=== PATIENT | female | born 1950 | race Caucasian/White ===

== ENCOUNTER → 2020-06-19 10:00 | Outpatient (BNV) | payer MEDICARE, SELFPAY | PROVIDERS: PCP Internal Medicine; Visit Provider Internal Medicine Medical Oncology | DX: Z85.3 Personal history of malignant neoplasm of breast (principal) | CPT/HCPCS: 99213; 99214 ==

== ENCOUNTER 2020-09-11 06:57 | Emergency (ER) | payer MEDICARE, SELFPAY ==
--- NOTE | ~2020-09-11 | CT_ITS ---
EXAMINATION: CT ABDOMEN AND PELVIS WITH CONTRAST CLINICAL INFORMATION: Abdominal pain, diarrhea. History colitis. Prior history breast cancer status post bilateral mastectomy. COMPARISON: None TECHNIQUE: Multidetector volumetric images were obtained from the superior aspect of the liver through the pubic symphysis following administration of 75 mL of Omnipaque 350 intravenous contrast. Sagittal and coronal reformatted images were obtained on the technologist's workstation. Oral contrast: No This CT examination was performed using dose optimization techniques as appropriate, variously including the following: *Automated exposure control *Adjustment of mA and/or kV according to patient size (this includes techniques or standardized protocols for targeted exams where dose is matched to indication/reason for exam; i.e. extremities or head) *Use of iterative reconstruction technique DLP: 327 mGy-cm FINDINGS: LUNG BASES: There are mild bilateral accentuated subpleural reticular markings at both bases. Incidental calcified granuloma present left posterior base under 5 mm, series 4 image 132. There is also probable linear mucous plugging subpleural left lateral base, coronal 49. No pleural thickening or effusion. LIVER, GALLBLADDER, AND BILIARY TREE: The liver is within normal size and smooth in contour and homogeneous in attenuation. There is no focal hepatic parenchymal lesion or intrahepatic ductal dilatation. The gallbladder is unremarkable with no evidence of radiopaque gallstones, gallbladder wall thickening, or obvious pericholecystic inflammatory changes. PANCREAS: Unremarkable. SPLEEN: Unremarkable. ADRENAL GLANDS: Right adrenal normal. There is a nodule medial limb left adrenal measuring 1.9 x 1.7 cm and 74 HU attenuation. KIDNEYS AND URETERS: The kidneys are normal in size and smooth in contour and enhance symmetrically. There are probable multiple parapelvic cysts left renal sinus. This limits assessment for collecting system distention. There is no left calculi or hydroureter or perinephric stranding. Right kidney has punctate cyst upper pole under 1 cm and a nonobstructing lower pole calculus 0.3 cm. BLADDER: Unremarkable. GASTROINTESTINAL TRACT: There are mild inflammatory changes of in the colon from cecum to rectum with mild circumferential wall thickening and reticulation of the serosal margins. There is also involvement distal and terminal ileum with mild wall thickening. There is no pneumatosis, free air, obstruction, or paracolic fluid collection. The appendix is unremarkable. No ascites. Small sliding hiatal hernia present. ABDOMINAL WALL: No significant hernia is appreciated. LYMPH NODES: No lymphadenopathy. VASCULAR: Unremarkable. PELVIC VISCERA: Unremarkable. OSSEOUS STRUCTURES: No acute bony abnormality. Degenerative changes lower lumbar spine facet L4-S1. SI joints unremarkable. No sacroiliitis. CT/CT abdomen pelvis w con IMPRESSION: 1. Mild diffuse colitis from cecum to rectum with involvement distal ileum. No pneumatosis or free air, ascites, or fluid collection. 2. Probable parapelvic cyst left renal sinus. No perinephric stranding. Nonobstructing right lower pole renal calculus 0.3 cm. 3. Left adrenal nodule 1.9 x 1.7 cm, 74 HU.
[2020-09-11 07:07] VITALS: BP 121/79; PULSE 94; RESP 18; TEMP 37; O2SAT 96; BMI 21.0
--- NOTE | 2020-09-11 07:08 | ED_ITS ---
HPI - Abdominal Pain General Chief Complaint: Abdominal Pain Stated Complaint: diarrhea, abd pain Time Seen by Provider: 09/11/20 07:08 Source: patient Mode of arrival: ambulatory Limitations: no limitations History of Present Illness HPI narrative: 70 yo female with breast cancer, HTN, HLD, colitis here with 4 days of intermittent cramping and diarrhea nonbloody - no antibiotics, no sick contacts MD elicited complaint: abdominal pain Pertinent past history: other (colitis) Onset (ago): day(s) Pain Consistency: intermittent and colicky Location: diffuse Severity: moderate Quality: cramping Radiation: none Migration to: no migration Exacerbating factors: bowel movement Relieving factors: nothing Context: history of similar episodes Associated symptoms: nausea and diarrhea Related Data Home Medications Medication Instructions Recorded Confirmed amlodipine 1 tab PO DAILY 06/19/20 06/19/20 atorvastatin 1 tab PO DAILY 06/19/20 06/19/20 biotin 5,000 mcg SUBLINGUAL DAILY 06/19/20 06/19/20 calcium 600 mg PO BID 06/19/20 06/19/20 cetirizine 1 tab PO DAILY 06/19/20 06/19/20 cholecalciferol (vitamin D3) 25 mcg PO DAILY 06/19/20 06/19/20 [Vitamin D3] zolpidem 0.5 tab PO BEDTIME PRN 06/19/20 06/19/20 Previous Rx's Medication Instructions Recorded levofloxacin 500 mg PO Q24H 7 Days #7 tab 09/11/20 metronidazole [Flagyl] 500 mg PO BID 7 Days #14 tab 09/11/20 Allergies Allergy/AdvReac Type Severity Reaction Status Date / Time WARM WATER SHELLFISH Allergy Intermediate RASH Uncoded 01/03/20 16:02 shellfish Allergy Unknown Hives Uncoded 06/19/20 10:35 Review of Systems Review of Systems Constitutional : No Weight loss, No Fever, No Chills ENT/Mouth : No sore throat, No Rhinorrhea Eyes: No Swelling, No Redness Cardiovascular : No Chest Pain, No SOB, NoEdema Respiratory : No Cough, No Sputum, No Wheezing Gastrointestinal : no Nausea, no Vomiting, positive Diarrhea, positive abdominal Pain, No Hematochezia, No Melena Genitourinary : No Dysuria, No Urinary Frequency, No Hematuria, No Urgency Musculoskeletal : No joint pain, No Myalgias, No Joint Swelling Skin : No Skin Lesions, No rash Neuro : No Weakness, No Numbness, No Dizziness, No Headache Psych : No Anxiety/Panic, No Depression Heme/Lymph: No Bruising, No Lymphadenopathy Endocrine : No Polyuria, No Polydipsia All other systems reviewed and are negative. Physical Exam Vital Signs: Vital Signs: Last Vital Signs Temp 98.6 F 09/11/20 09:33 Pulse 88 09/11/20 09:33 Resp 17 09/11/20 09:33 BP 118/72 09/11/20 09:33 Pulse Ox 97 09/11/20 09:33 Body Mass Index 21.0 Appearance: Alert. Oriented X3. No acute distress. Eyes: Pupils equal, round and reactive to light. ENT: Pharynx normal. Neck: Normal inspection. Neck supple. CVS: Normal heart rate and rhythm. Pulses normal. Respiratory: No respiratory distress. Breath sounds normal. Abdomen: Soft and non-tender. Skin: Skin warm and dry. Normal skin color. Normal skin turgor. Extremities: No lower extremity edema. No calf ttp Neuro: Oriented X 3. No motor deficit. No sensory deficit. Course Course Course Narrative: repleted K - wants to trial course of antibiotics at home, overall abd benign, tolerating PO, only 1 eipsode of diarrhea while here, given precautions to return MDM - Abdominal Pain MDM Narrative Medical decision making narrative: 70 yo female with breast cancer, HTN, HLD, colitis here with 4 days of intermittent cramping and diarrhea nonbloody - no antibiotics, no sick contacts at this time will need labs, IVF, CT scan for colitis/diverticulitis, stool studies if she produces, dispo per results and findings. Lab Data Result diagrams: 09/11/20 07:37 09/11/20 07:37 Labs: Lab Results 09/11/20 09/11/20 09/11/20 Range/Units 07:37 07:37 07:37 WBC 12.0 H (4.8-10.8) X10*3/uL RBC 4.65 (4.20-5.50) X10*6/uL Hgb 14.3 (12.0-16.0) g/dl Hct 42.1 (37-47) % MCV 90.5 (80-98) fL MCH 30.8 (27.0-33.0) pg MCHC 34.0 (31.0-35.0) g/dl RDW 13.6 (11.0-16.0) % Plt Count 338 (160-400) X10*3/uL MPV 9.8 (9.4-12.3) fL Immature Gran % (Auto) 0.3 (0.0-0.4) % Neut % (Auto) 78.2 H (45-73) % Lymph % (Auto) 13.1 L (20-40) % Routt % (Auto) 6.8 (2-11) % Eos % (Auto) 1.2 (0-4) % Baso % (Auto) 0.4 (0-2) % Lymph # (Auto) 1.6 (1.2-4.9) X10*3/uL Routt # (Auto) 0.8 (0.1-1.2) X10*3/uL Eos # (Auto) 0.1 (0.0-0.4) X10*3/uL Baso # (Auto) 0.1 (0.0-0.2) X10*3/uL Abs Immat Gran (auto) 0.04 H (0.00-0.03) X10*3/uL Absolute Neuts (auto) 9.4 H (2.0-8.3) X10*3/uL Absolute Nucleated RBC 0.000 (0.0-0.012) X10*3/uL Nucleated RBC % (auto) 0.0 (0.0-0.2) /100WBC Hold Blue Top SEE NOTE Sodium 142 (135-145) mmol/L Potassium 3.0 L D (3.3-5.1) mmol/L Chloride 106 (96-108) mmol/L Carbon Dioxide 25 (22-29) mmol/L Anion Gap 14 (12-20) BUN 12 (9-16) mg/dL Creatinine 0.69 (0.5-1.4) mg/dL Estim Creat Clear Calc 59.9 Estimated GFR > 60 Random Glucose 111 (60-115) mg/dL Lactic Acid (0.5-2.0) mmol/L Calcium 9.5 (8.4-10.2) mg/dL Magnesium 1.7 (1.6-2.6) mg/dL Total Bilirubin 0.6 (0.0-1.0) mg/dL Direct Bilirubin 0.2 (0.0-0.5) mg/dL AST 19 (5-31) U/L ALT 16 (0-31) U/L Alkaline Phosphatase 89 (39-117) U/L Total Protein 7.7 (6.5-8.0) g/dL Albumin 4.3 (3.5-5.0) g/dL Lipase 36 (8-78) U/L Stool Leukocytes, Qual (NEGATIVE) C. difficile Toxin A&B (Negative) C. difficile Antigen (Negative) C. difficile Interpret COVID-19 (JULIA) (Negative) COVID-19 Clin Com 09/11/20 09/11/20 09/11/20 Range/Units 07:37 07:37 07:39 WBC (4.8-10.8) X10*3/uL RBC (4.20-5.50) X10*6/uL Hgb (12.0-16.0) g/dl Hct (37-47) % MCV (80-98) fL MCH (27.0-33.0) pg MCHC (31.0-35.0) g/dl RDW (11.0-16.0) % Plt Count (160-400) X10*3/uL MPV (9.4-12.3) fL Immature Gran % (Auto) (0.0-0.4) % Neut % (Auto) (45-73) % Lymph % (Auto) (20-40) % Routt % (Auto) (2-11) % Eos % (Auto) (0-4) % Baso % (Auto) (0-2) % Lymph # (Auto) (1.2-4.9) X10*3/uL Routt # (Auto) (0.1-1.2) X10*3/uL Eos # (Auto) (0.0-0.4) X10*3/uL Baso # (Auto) (0.0-0.2) X10*3/uL Abs Immat Gran (auto) (0.00-0.03) X10*3/uL Absolute Neuts (auto) (2.0-8.3) X10*3/uL Absolute Nucleated RBC (0.0-0.012) X10*3/uL Nucleated RBC % (auto) (0.0-0.2) /100WBC Hold Blue Top Sodium (135-145) mmol/L Potassium (3.3-5.1) mmol/L Chloride (96-108) mmol/L Carbon Dioxide (22-29) mmol/L Anion Gap (12-20) BUN (9-16) mg/dL Creatinine (0.5-1.4) mg/dL Estim Creat Clear Calc Estimated GFR Random Glucose (60-115) mg/dL Lactic Acid 1.2 (0.5-2.0) mmol/L Calcium (8.4-10.2) mg/dL Magnesium (1.6-2.6) mg/dL Total Bilirubin (0.0-1.0) mg/dL Direct Bilirubin (0.0-0.5) mg/dL AST (5-31) U/L ALT (0-31) U/L Alkaline Phosphatase (39-117) U/L Total Protein (6.5-8.0) g/dL Albumin (3.5-5.0) g/dL Lipase (8-78) U/L Stool Leukocytes, Qual NEGATIVE (NEGATIVE) C. difficile Toxin A&B (Negative) C. difficile Antigen (Negative) C. difficile Interpret COVID-19 (JULIA) Negative (Negative) COVID-19 Clin Com See Note 09/11/20 Range/Units 07:39 WBC (4.8-10.8) X10*3/uL RBC (4.20-5.50) X10*6/uL Hgb (12.0-16.0) g/dl Hct (37-47) % MCV (80-98) fL MCH (27.0-33.0) pg MCHC (31.0-35.0) g/dl RDW (11.0-16.0) % Plt Count (160-400) X10*3/uL MPV (9.4-12.3) fL Immature Gran % (Auto) (0.0-0.4) % Neut % (Auto) (45-73) % Lymph % (Auto) (20-40) % Routt % (Auto) (2-11) % Eos % (Auto) (0-4) % Baso % (Auto) (0-2) % Lymph # (Auto) (1.2-4.9) X10*3/uL Routt # (Auto) (0.1-1.2) X10*3/uL Eos # (Auto) (0.0-0.4) X10*3/uL Baso # (Auto) (0.0-0.2) X10*3/uL Abs Immat Gran (auto) (0.00-0.03) X10*3/uL Absolute Neuts (auto) (2.0-8.3) X10*3/uL Absolute Nucleated RBC (0.0-0.012) X10*3/uL Nucleated RBC % (auto) (0.0-0.2) /100WBC Hold Blue Top Sodium (135-145) mmol/L Potassium (3.3-5.1) mmol/L Chloride (96-108) mmol/L Carbon Dioxide (22-29) mmol/L Anion Gap (12-20) BUN (9-16) mg/dL Creatinine (0.5-1.4) mg/dL Estim Creat Clear Calc Estimated GFR Random Glucose (60-115) mg/dL Lactic Acid (0.5-2.0) mmol/L Calcium (8.4-10.2) mg/dL Magnesium (1.6-2.6) mg/dL Total Bilirubin (0.0-1.0) mg/dL Direct Bilirubin (0.0-0.5) mg/dL AST (5-31) U/L ALT (0-31) U/L Alkaline Phosphatase (39-117) U/L Total Protein (6.5-8.0) g/dL Albumin (3.5-5.0) g/dL Lipase (8-78) U/L Stool Leukocytes, Qual (NEGATIVE) C. difficile Toxin A&B Negative (Negative) C. difficile Antigen Negative (Negative) C. difficile Interpret SEE NOTE COVID-19 (JULIA) (Negative) COVID-19 Clin Com Discharge Plan Discharge Clinical Impression: Hypokalemia, Colitis Patient Disposition: Home, Self-Care Instructions: Hypokalemia (ED), Colitis (ED) Additional Instructions: return to ED for any worsening symptoms or concerns if bloody stools, increased pain, fevers, vomiting occurs please return take antibiotics with meal avoid greasy, high fat foods, dairy other than yogurt for 1 week given 1st dose of flagyl, do not take levofloxacin today already given your dose Prescriptions: New metronidazole [Flagyl] 500 mg tablet 500 mg PO BID 7 Days Qty: 14 RF: 0 levofloxacin 500 mg tablet 500 mg PO Q24H 7 Days Qty: 7 RF: 0 No Action calcium 600 mg Capsule 600 mg PO BID RF: 0 atorvastatin 40 mg tablet 1 tab PO DAILY RF: 0 amlodipine 5 mg tablet 1 tab PO DAILY RF: 0 zolpidem 10 mg tablet 0.5 tab PO BEDTIME PRN (Reason: insomnia) RF: 0 cholecalciferol (vitamin D3) [Vitamin D3] 25 mcg (1,000 unit) Tablet 25 mcg PO DAILY RF: 0 biotin 5,000 mcg Tablet, Sublingual 5,000 mcg SUBLINGUAL DAILY RF: 0 cetirizine 10 mg tablet 1 tab PO DAILY RF: 0 Referrals: Wisam Giang MD [Primary Care Provider] - 1 week [facility] Past Medical History Attestation statement: The following information was validated with the patient. Medical History Arthritis Bilateral breast cancer HTN (hypertension) Hyperchloremia Osteopenia Vitamin D deficiency Surgical History History of bilateral mastectomy Family History Family History (Updated 06/19/20 @ 10:34 by Bea Ibarra RN) Paternal Uncle Colon cancer Mother Cardiac disease Father Cardiac disease Social History Social History Alcohol intake: current Alcohol intake frequency: 0-2 drinks per day Alcohol type: wine Patient Tobacco Use Status: Never used Tobacco Use of substances other than those prescribed or required for medical reasons: No Advance Directives: Yes Advance Directives Information Provided: Yes Advance Directives on File: No
[2020-09-11] MEDS: 0.9 % Sodium Chloride 1,000 ML 999 ML IVCONT (07:43)
[2020-09-11 07:50] LABS: MANUAL DIFF FLAG NO
[2020-09-11 07:53] LABS: Basophils Absolute Auto 0.1 X10*3/uL (0.0-0.2); Basophils Percent Auto 0.4 % (0-2); Eosinophils Absolute Auto 0.1 X10*3/uL (0.0-0.4); Eosinophils Percent Auto 1.2 % (0-4); Hematocrit 42.1 % (37-47); Hemoglobin 14.3 g/dl (12.0-16.0); Imm Gran Abs Auto 0.04 X10*3/uL (0.00-0.03); Imm Gran Pct Auto 0.3 % (0.0-0.4); Lymphocytes Absolute Auto 1.6 X10*3/uL (1.2-4.9); Lymphocytes Percent Auto 13.1 % (20-40); Mean Corpuscular Hemoglobin 30.8 pg (27.0-33.0); Mean Corpuscular Volume 90.5 fL (80-98); Mean Platelet Volume 9.8 fL (9.4-12.3); Monocytes Absolute Auto 0.8 X10*3/uL (0.1-1.2); Monocytes Percent Auto 6.8 % (2-11); Neutrophils Absolute Auto 9.4 X10*3/uL (2.0-8.3); Neutrophils Percent Auto 78.2 % (45-73); Platelet Count 338 X10*3/uL (160-400); Red Blood Count 4.65 X10*6/uL (4.20-5.50); Red Cell Distribution Width 13.6 % (11.0-16.0)
[2020-09-11 08:04] LABS: COVID-19 Test Negative (Negative); IDNOW Serial# 08D9AD1C
[2020-09-11 08:14] LABS: Lactic Acid 1.2 mmol/L (0.5-2.0)
[2020-09-11 08:22] LABS: Alanine Aminotransferase 16 U/L (0-31); Albumin Level 4.3 g/dL (3.5-5.0); Alkaline Phosphatase 89 U/L (39-117); Anion Gap 14 (12-20); Aspartate Amino Transferase 19 U/L (5-31); Bilirubin Direct 0.2 mg/dL (0.0-0.5); Bilirubin Total 0.6 mg/dL (0.0-1.0); Blood Urea Nitrogen 12 mg/dL (9-16); Calcium 9.5 mg/dL (8.4-10.2); Carbon Dioxide 25 mmol/L (22-29); Chloride 106 mmol/L (96-108); Creatinine Clr Calc Pharmacy 59.9; Estimated Glomerular Filt Rate > 60; Glucose Random 111 mg/dL (60-115); Lipase 36 U/L (8-78); Magnesium 1.7 mg/dL (1.6-2.6); Sodium 142 mmol/L (135-145); Total Protein 7.7 g/dL (6.5-8.0)
[2020-09-11 08:28] LABS: Leukocytes Stool Qualitative NEGATIVE (NEGATIVE)
[2020-09-11 08:51] LABS: CDIFF Ag Negative (Negative); CDIFF Internal ctrl Dots and bkg OK (V); CDiff Toxin Negative (Negative)
--- NOTE | 2020-09-11 08:56 | PC.NURSE ---
pt reports having two more diarrhea episodes, pt awaiting to go to ct
[2020-09-11] MEDS: iohexoL 350 MG/ML 100 ML INFUS..BTL IV (09:17)
[2020-09-11 09:33] VITALS: BP 118/72; PULSE 88; RESP 17; TEMP 37; O2SAT 97
[2020-09-11] MEDS: levoFLOXacin 500 MG TABLET PO (10:18)
[2020-09-11] MEDS: metroNIDAZOLE 500 MG TABLET PO (10:18)
[2020-09-11] MEDS: Potassium Chloride ER 20 MEQ TAB.ER.PRT 40 MEQ PO (10:18)
== END 2020-09-11 10:27 | disposition home or self-care (01) ==
PROVIDERS: Emergency Provider Emergency Medicine; PCP Internal Medicine
DX: K52.9 Noninfective gastroenteritis and colitis, unspecified (principal); R10.9 Unspecified abdominal pain; E87.6 Hypokalemia; I10 Essential (primary) hypertension; Z79.899 Other long term (current) drug therapy; Z20.822 Contact with and (suspected) exposure to COVID-19
CPT/HCPCS: 36415; 74177; 80048; 80076; 83605; 83690; 83735; 85025; 87040; 87205; 87324; 87449; 87635; 89055; 99284; Q9967

== ENCOUNTER 2020-11-11 16:23 | Emergency (ER) | payer MEDICARE, SELFPAY ==
--- NOTE | ~2020-11-11 | CT_ITS ---
EXAMINATION: CT ABDOMEN AND PELVIS WITHOUT CONTRAST CLINICAL INFORMATION: Right flank pain. Evaluate for renal colic. COMPARISON: CT abdomen/pelvis dated 09/11/2020. TECHNIQUE: Multidetector volumetric imaging was performed from the superior aspect of the liver through the pubic symphysis. Sagittal and coronal reformatted images were obtained on the technologist's workstation. This CT examination was performed using dose optimization techniques as appropriate, variously including the following: *Automated exposure control. *Adjustment of mA and/or kV according to patient size (this includes techniques or standardized protocols for targeted exams where dose is matched to indication/reason for exam; i.e. extremities or head). *Use of iterative reconstruction technique. DLP: 295 mGy-cm FINDINGS: LUNG BASES: The visualized lung bases are unremarkable. LIVER, GALLBLADDER, AND BILIARY TREE: The liver is normal in size, shape, and attenuation. No focal hepatic lesion or biliary ductal dilatation is present. The gallbladder is unremarkable with no evidence of radiopaque gallstones, gallbladder wall thickening, or obvious pericholecystic inflammatory changes. PANCREAS: Unremarkable. SPLEEN: Unremarkable. ADRENAL GLANDS: Redemonstration of a left adrenal nodule measuring 2.0 x 2.0 x 1.8 cm. This measures approximately 25 Hounsfield units on noncontrast imaging. Findings are consistent with a probable adenoma. One year follow up is recommended with adrenal washout CT. If stable for greater than one year, no further follow up imaging recommended. Unremarkable right adrenal gland. KIDNEYS AND URETERS: The kidneys are normal in size, shape, and attenuation. The previously seen right lower pole renal stone is now located within the distal right ureter and measures up to 0.3 cm. This is located just proximal to the right ureterovesicular junction. There is mild proximal hydroureteronephrosis with mild periureteral stranding. No left-sided renal or ureteral stone. No left-sided hydronephrosis or hydroureter. BLADDER: Nondistended and unremarkable. GASTROINTESTINAL TRACT: Small, sliding hiatal hernia. Sigmoid diverticulosis without evidence of acute diverticulitis. No bowel wall thickening or associated inflammatory change. No small or large bowel obstruction. PERITONEAL CAVITY: No intra-abdominal free air or free fluid. No intra-abdominal mass or organized fluid collection/abscess formation. ABDOMINAL WALL: No significant hernia is appreciated. LYMPH NODES: No significant lymphadenopathy. VASCULAR: Unremarkable. PELVIC VISCERA: The uterus and adnexa are unremarkable. OSSEOUS STRUCTURES: Unremarkable. CT/CT abdomen pelvis wo con IMPRESSION: 1. Distal right ureteral stone just proximal to the ureterovesicular junction measuring 0.4 cm. Mild proximal hydroureteronephrosis with periureteral stranding. 2. Redemonstration of a left adrenal nodule measuring up to 2 cm and 25 Hounsfield units. Findings likely represent a probable adenoma. One year follow up adrenal washout CT is recommended. If stable for greater than one year, no further follow up imaging is recommended. 3. Additional chronic findings are unchanged.
[2020-11-11 16:52] VITALS: BP 144/80; PULSE 73; RESP 22; TEMP 36.6; O2SAT 97; BMI 20.8
[2020-11-11] MEDS: Acetaminophen 325 MG TABLET 650 MG PO (17:19)
[2020-11-11] MEDS: Ondansetron ODT 4 MG TAB.RAPDIS TRANSLINGU (17:20)
[2020-11-11 17:36] LABS: MANUAL DIFF FLAG NO
[2020-11-11 17:44] LABS: Basophils Absolute Auto 0.1 X10*3/uL (0.0-0.2); Basophils Percent Auto 0.5 % (0-2); Eosinophils Absolute Auto 0.1 X10*3/uL (0.0-0.4); Hematocrit 41.4 % (37-47); Hemoglobin 13.9 g/dl (12.0-16.0); Imm Gran Abs Auto 0.03 X10*3/uL (0.00-0.03); Imm Gran Pct Auto 0.3 % (0.0-0.4); Lymphocytes Absolute Auto 1.4 X10*3/uL (1.2-4.9); Lymphocytes Percent Auto 12.6 % (20-40); Mean Corpuscular HGB Conc 33.6 g/dl (31.0-35.0); Mean Corpuscular Hemoglobin 30.8 pg (27.0-33.0); Mean Corpuscular Volume 91.8 fL (80-98); Mean Platelet Volume 10.4 fL (9.4-12.3); Monocytes Absolute Auto 0.6 X10*3/uL (0.1-1.2); Monocytes Percent Auto 5.2 % (2-11); Neutrophils Absolute Auto 8.6 X10*3/uL (2.0-8.3); Neutrophils Percent Auto 80.4 % (45-73); Platelet Count 286 X10*3/uL (160-400); Red Blood Count 4.51 X10*6/uL (4.20-5.50); Red Cell Distribution Width 13.7 % (11.0-16.0); White Blood Count 10.7 X10*3/uL (4.8-10.8)
[2020-11-11 18:01] LABS: Glucose Urine UA NEG (NEG); Leukocyte Esterase Urine NEG (NEG); Nitrite Urine NEG (NEG); Specific Gravity - Urine 1.025 (1.005-1.025); Urine Blood NEG (NEG); Urine Ketones 5 MG/DL (NEG); Urine Protein NEG (NEG-TRACE)
[2020-11-11 18:02] LABS: Lipase 48 U/L (8-78)
[2020-11-11 18:03] LABS: Alanine Aminotransferase 21 U/L (0-31); Albumin Level 4.4 g/dL (3.5-5.0); Alkaline Phosphatase 88 U/L (39-117); Anion Gap 14 (12-20); Aspartate Amino Transferase 25 U/L (5-31); Bilirubin Total 0.4 mg/dL (0.0-1.0); Blood Urea Nitrogen 24 mg/dL (9-16); Calcium 10.1 mg/dL (8.4-10.2); Carbon Dioxide 23 mmol/L (22-29); Chloride 111 mmol/L (96-108); Estimated Glomerular Filt Rate > 60; Glucose Random 127 mg/dL (60-115); Magnesium 1.8 mg/dL (1.6-2.6); Potassium 4.2 mmol/L (3.3-5.1); Sodium 144 mmol/L (135-145); Total Protein 7.9 g/dL (6.5-8.0)
[2020-11-11 18:09] LABS: Appearance Urine CLEAR; Color Urine YELLOW
--- NOTE | 2020-11-11 21:01 | ED.GENADULT ---
HPI - General Adult General Chief complaint: General Medical Stated complaint: ABD PAIN, KIDNEY STONES? Time Seen by Provider: 11/11/20 17:06 Source: patient Mode of arrival: ambulatory Limitations: no limitations History of Present Illness HPI narrative: 70-year-old female here with complaints of right flank pain nausea and feeling lightheaded for 2 episodes the 1st occurred at 02:30 today. On my exam she has no continued pain. No urinary symptoms, vomiting, fever Related Data Home Medications Medication Instructions Recorded Confirmed amlodipine 1 tab PO DAILY 06/19/20 06/19/20 atorvastatin 1 tab PO DAILY 06/19/20 06/19/20 biotin 5,000 mcg SUBLINGUAL DAILY 06/19/20 06/19/20 calcium 600 mg PO BID 06/19/20 06/19/20 cetirizine 1 tab PO DAILY 06/19/20 06/19/20 cholecalciferol (vitamin D3) 25 mcg PO DAILY 06/19/20 06/19/20 [Vitamin D3] zolpidem 0.5 tab PO BEDTIME PRN 06/19/20 06/19/20 Previous Rx's Medication Instructions Recorded tamsulosin [Flomax] 0.4 mg PO DAILY #10 cap 11/11/20 Allergies Allergy/AdvReac Type Severity Reaction Status Date / Time WARM WATER SHELLFISH Allergy Intermediate RASH Uncoded 11/11/20 16:52 Review of Systems Review of Systems: Yes all other systems are reviewed and are negative Constitutional: Constitutional: Reports no additional constitutional complaints, Denies body ache(s), Denies chills, Denies fever(s), Denies headache(s) and Denies weakness Eyes: Eyes: Reports no additional eye complaints and Denies change in vision ENT: Reports system reviewed and no additional complaints, except as documented, Denies dizziness, Denies headache(s), Denies nasal congestion, Denies nasal discharge and Denies neck pain Cardiovascular: Cardiovascular: Reports no additional cardiovascular complaints, Denies chest pain, Denies leg edema and Denies dyspnea Respiratory: Respiratory: Reports no additional respiratory complaints, Denies cough and Denies dyspnea Gastrointestinal: Gastrointestinal: Reports no additional gastrointestinal complaints, Denies abdominal pain, Denies diarrhea, Denies nausea and Denies vomiting Genitourinary: Genitourinary: Reports no additional female genitourinary complaints and Denies urinary incontinence Musculoskeletal: Musculoskeletal: Reports no additional musculoskeletal complaints, Reports back pain, Denies arthralgias, Denies joint swelling, Denies neck pain, Denies numbness and Denies tingling Integumentary/Breasts: Skin/Breast: Reports system reviewed and no additional complaints, except as docu and Denies rash Neurologic: Reports system reviewed and no additional complaints, except as documented, Denies Abnormal speech present, Denies dizziness, Denies headache(s), Denies numbness, Denies tingling and Denies weakness PMFSH Past Medical History Attestation statement: The following information was validated with the patient. Source: old records reviewed and nursing notes reviewed Medical History Arthritis Bilateral breast cancer HTN (hypertension) Hyperchloremia Osteopenia Vitamin D deficiency Surgical History History of bilateral mastectomy Family History Family History Paternal Uncle Colon cancer Mother Cardiac disease Father Cardiac disease Social History Social History Alcohol intake: current Alcohol intake frequency: 0-2 drinks per day Alcohol type: wine Patient Tobacco Use Status: Never used Tobacco Advance Directives: No Advance Directives Information Provided: No Physical Exam Vital Signs: Vital Signs: Last Vital Signs Temp 97.9 F 11/11/20 16:52 Pulse 73 11/11/20 16:52 Resp 22 H 11/11/20 16:52 BP 144/80 H 11/11/20 16:52 Pulse Ox 97 11/11/20 16:52 Body Mass Index 20.8 Const: General: cooperative, healthy appearing, comfortable and no acute distress Orientation/consciousness: patient oriented x3 Limitations: no limitations HENMT: Head: Yes normal to inspection Ears: hearing grossly normal bilaterally General nose exam: Normal external nose present Face and sinus: Yes normal facial exam Mouth: Normal oral and palatal mucosa present Throat: Yes posterior oropharynx normal Eyes: General: appearance normal, both eyes and all related structures Pupils: Equal, round and reactive pupils present Neck: Neck: Yes normal visual inspection Chest: Chest palpation & inspection: normal inspection of the chest Resp: Effort & Inspection: normal respiratory effort Auscultation: clear to auscultation bilaterally Cardio: Rate: regular rate Rhythm: regular rhythm Peripheral pulses: Peripheral pulses 2+ throughout GI: Inspection: Yes normal to inspection Palpation (GI): Soft to palpation and nontender Auscultation: normal bowel sounds : General: Yes no CVA tenderness Back/Spine/Pelvis: Back: no CVA tenderness Thoracic/Lumbar Spine: thoracic and lumbar spine normal to inspection Skin: General skin exam: no rashes or lesions noted Neuro: General: patient oriented x3, no focal motor deficits and normal sensation to monofilament Cranial nerves: Yes Equal, round and reactive pupils present Cognition (Neuro): normal cognition Speech: No Abnormal speech present Gait exam (Neuro): Normal gait present Motor exam (neuro): 5/5 motor strength present throughout Extrem: General: Yes normal to inspection Course Course Course Narrative: 70-year-old female here with intermittent episodes of flank pain since 02:30 with associated nausea and feeling lightheaded. Will check urine, labs, CT -IMPRESSION: 1. Distal right ureteral stone just proximal to the ureterovesicular junction measuring 0.4 cm. Mild proximal hydroureteronephrosis with periureteral stranding. 2. Redemonstration of a left adrenal nodule measuring up to 2 cm and 25 Hounsfield units. Findings likely represent a probable adenoma. One year follow up adrenal washout CT is recommended. If stable for greater than one year, no further follow up imaging is recommended. UA is negative for UTI. Normal labs. No pain since my examination. Tolerating PO. Given flomax for home. Recommend f/u outpatient with PCP. Reviewed worrisome signs and symptoms of when to return to the emergency department. Comfortable discharge home. Patient given copy of CT report. She is aware that she is to follow up with the adrenal nodule Medical Decision Making MDM Narrative Medical decision making narrative: Gallstone, renal colic Medical Records Medical records reviewed: Yes I reviewed the patient's medical records. Lab Data Lab results reviewed: Yes I reviewed the patient's lab results. Result diagrams: 11/11/20 17:31 11/11/20 17:31 Labs: Lab Results 11/11/20 11/11/20 11/11/20 Range/Units 17:31 17:31 17:31 WBC 10.7 (4.8-10.8) X10*3/uL RBC 4.51 (4.20-5.50) X10*6/uL Hgb 13.9 (12.0-16.0) g/dl Hct 41.4 (37-47) % MCV 91.8 (80-98) fL MCH 30.8 (27.0-33.0) pg MCHC 33.6 (31.0-35.0) g/dl RDW 13.7 (11.0-16.0) % Plt Count 286 (160-400) X10*3/uL MPV 10.4 (9.4-12.3) fL Immature Gran % (Auto) 0.3 (0.0-0.4) % Neut % (Auto) 80.4 H (45-73) % Lymph % (Auto) 12.6 L (20-40) % [place] % (Auto) 5.2 (2-11) % Eos % (Auto) 1.0 (0-4) % Baso % (Auto) 0.5 (0-2) % Lymph # (Auto) 1.4 (1.2-4.9) X10*3/uL [place] # (Auto) 0.6 (0.1-1.2) X10*3/uL Eos # (Auto) 0.1 (0.0-0.4) X10*3/uL Baso # (Auto) 0.1 (0.0-0.2) X10*3/uL Abs Immat Gran (auto) 0.03 (0.00-0.03) X10*3/uL Absolute Neuts (auto) 8.6 H (2.0-8.3) X10*3/uL Absolute Nucleated RBC 0.000 (0.0-0.012) X10*3/uL Nucleated RBC % (auto) 0.0 (0.0-0.2) /100WBC Hold Purple Top SEE NOTE Sodium 144 (135-145) mmol/L Potassium 4.2 D (3.3-5.1) mmol/L Chloride 111 H (96-108) mmol/L Carbon Dioxide 23 (22-29) mmol/L Anion Gap 14 (12-20) BUN 24 H D (9-16) mg/dL Creatinine 0.92 (0.5-1.4) mg/dL Estim Creat Clear Calc 45.0 Estimated GFR > 60 Random Glucose 127 H (60-115) mg/dL Calcium 10.1 D (8.4-10.2) mg/dL Magnesium 1.8 (1.6-2.6) mg/dL Total Bilirubin 0.4 (0.0-1.0) mg/dL AST 25 (5-31) U/L ALT 21 (0-31) U/L Alkaline Phosphatase 88 (39-117) U/L Total Protein 7.9 (6.5-8.0) g/dL Albumin 4.4 (3.5-5.0) g/dL Lipase (8-78) U/L Urine Color Urine Appearance Urine pH (5.0-8.0) Ur Specific [place] (1.005-1.025) Urine Protein (NEG-TRACE) MG/DL Urine Glucose (UA) (NEG) MG/DL Urine Ketones (NEG) MG/DL Urine Blood (NEG) Urine Nitrite (NEG) Ur Leukocyte Esterase (NEG) 11/11/20 11/11/20 Range/Units 17:31 17:31 WBC (4.8-10.8) X10*3/uL RBC (4.20-5.50) X10*6/uL Hgb (12.0-16.0) g/dl Hct (37-47) % MCV (80-98) fL MCH (27.0-33.0) pg MCHC (31.0-35.0) g/dl RDW (11.0-16.0) % Plt Count (160-400) X10*3/uL MPV (9.4-12.3) fL Immature Gran % (Auto) (0.0-0.4) % Neut % (Auto) (45-73) % Lymph % (Auto) (20-40) % [place] % (Auto) (2-11) % Eos % (Auto) (0-4) % Baso % (Auto) (0-2) % Lymph # (Auto) (1.2-4.9) X10*3/uL [place] # (Auto) (0.1-1.2) X10*3/uL Eos # (Auto) (0.0-0.4) X10*3/uL Baso # (Auto) (0.0-0.2) X10*3/uL Abs Immat Gran (auto) (0.00-0.03) X10*3/uL Absolute Neuts (auto) (2.0-8.3) X10*3/uL Absolute Nucleated RBC (0.0-0.012) X10*3/uL Nucleated RBC % (auto) (0.0-0.2) /100WBC Hold Purple Top Sodium (135-145) mmol/L Potassium (3.3-5.1) mmol/L Chloride (96-108) mmol/L Carbon Dioxide (22-29) mmol/L Anion Gap (12-20) BUN (9-16) mg/dL Creatinine (0.5-1.4) mg/dL Estim Creat Clear Calc Estimated GFR Random Glucose (60-115) mg/dL Calcium (8.4-10.2) mg/dL Magnesium (1.6-2.6) mg/dL Total Bilirubin (0.0-1.0) mg/dL AST (5-31) U/L ALT (0-31) U/L Alkaline Phosphatase (39-117) U/L Total Protein (6.5-8.0) g/dL Albumin (3.5-5.0) g/dL Lipase 48 (8-78) U/L Urine Color YELLOW Urine Appearance CLEAR Urine pH 6.0 (5.0-8.0) Ur Specific [place] 1.025 (1.005-1.025) Urine Protein NEG (NEG-TRACE) MG/DL Urine Glucose (UA) NEG (NEG) MG/DL Urine Ketones 5 (NEG) MG/DL Urine Blood NEG (NEG) Urine Nitrite NEG (NEG) Ur Leukocyte Esterase NEG (NEG) Imaging Data CT scan - abdomen: Attestation: I personally reviewed and interpreted this imaging study as follows: Radiologist's impression: IMPRESSION: 1. Distal right ureteral stone just proximal to the ureterovesicular junction measuring 0.4 cm. Mild proximal hydroureteronephrosis with periureteral stranding. 2. Redemonstration of a left adrenal nodule measuring up to 2 cm and 25 Hounsfield units. Findings likely represent a probable adenoma. One year follow up adrenal washout CT is recommended. If stable for greater than one year, no further follow up imaging is recommended. Discharge Plan Discharge Clinical Impression: Renal colic on right side, Adrenal adenoma Patient Disposition: Home, Self-Care Instructions: Renal Colic (ED) Additional Instructions: Your CT scan shows an adrenal adenoma. This was seen on your previous CT scan. You should follow-up with your PCP in regards to this Increase fluids Return for severe pain, fever 2 or more vomiting episodes. Prescriptions: New tamsulosin [Flomax] 0.4 mg capsule 0.4 mg PO DAILY Qty: 10 RF: 0 No Action calcium 600 mg Capsule 600 mg PO BID RF: 0 atorvastatin 40 mg tablet 1 tab PO DAILY RF: 0 amlodipine 5 mg tablet 1 tab PO DAILY RF: 0 zolpidem 10 mg tablet 0.5 tab PO BEDTIME PRN (Reason: insomnia) RF: 0 cholecalciferol (vitamin D3) [Vitamin D3] 25 mcg (1,000 unit) Tablet 25 mcg PO DAILY RF: 0 biotin 5,000 mcg Tablet, Sublingual 5,000 mcg SUBLINGUAL DAILY RF: 0 cetirizine 10 mg tablet 1 tab PO DAILY RF: 0 Referrals: Wisam Giang MD [Primary Care Provider] - 2 days
[2020-11-11] MEDS: Tamsulosin HCL 0.4 MG CAPSULE PO (22:29)
== END 2020-11-11 22:30 | disposition home or self-care (01) ==
PROVIDERS: Physician Assistant Medical; Emergency Provider Emergency Medicine; PCP Internal Medicine
DX: N13.2 Hydronephrosis with renal and ureteral calculous obstruction (principal); D35.02 Benign neoplasm of left adrenal gland; I10 Essential (primary) hypertension; Z85.3 Personal history of malignant neoplasm of breast
CPT/HCPCS: 36415; 74176; 80053; 81003; 83690; 83735; 85025; 99283; 99284

== ENCOUNTER 2021-01-30 13:29 | Emergency (ER) | payer MEDICARE, SELFPAY ==
--- NOTE | ~2021-01-30 | CT_ITS ---
EXAMINATION: CT ABDOMEN AND PELVIS WITHOUT CONTRAST CLINICAL INFORMATION: Right flank pain. Evaluate for a stone. COMPARISON: Recent CT abdomen/pelvis dated 11/11/2000. TECHNIQUE: Multidetector volumetric imaging was performed from the superior aspect of the liver through the pubic symphysis. Sagittal and coronal reformatted images were obtained on the technologist's workstation. This CT examination was performed using dose optimization techniques as appropriate, variously including the following: *Automated exposure control *Adjustment of mA and/or kV according to patient size (this includes techniques or standardized protocols for targeted exams where dose is matched to indication/reason for exam; i.e. extremities or head) *Use of iterative reconstruction technique DLP: 324 mGy-cm FINDINGS: LUNG BASES: The visualized lung bases are unremarkable. LIVER, GALLBLADDER, AND BILIARY TREE: The liver is normal in size, shape, and attenuation. No focal hepatic lesion or biliary ductal dilatation is present. The gallbladder is unremarkable with no evidence of radiopaque gallstones, gallbladder wall thickening, or obvious pericholecystic inflammatory changes. PANCREAS: Unremarkable SPLEEN: Unremarkable ADRENAL GLANDS: Redemonstration of a left adrenal nodule measuring up to 2.0 cm, not significantly changed when compared to the prior examination. Recommendation of adrenal washout CT one year from the initial examination on 09/11/2020 is unchanged. No new adrenal nodule. KIDNEYS AND URETERS: The kidneys are normal in size, shape, and attenuation. The previously seen distal right ureteral stone is now located at the right ureterovesicular junction measuring up to 0.4 cm in greatest dimension. There is mild right-sided hydroureteronephrosis, similar when compared to the prior examination. No new renal or ureteral stone. No left-sided hydroureteronephrosis. BLADDER: Otherwise unremarkable. GASTROINTESTINAL TRACT: Small, sliding hiatal hernia, unchanged. Sigmoid diverticulosis without evidence of acute diverticulitis. No small or large bowel obstruction. Appendix not seen. PERITONEAL CAVITY: No intra-abdominal free air or free fluid. No intra-abdominal mass or organized fluid collection/abscess formation. ABDOMINAL WALL: No significant hernia is appreciated. LYMPH NODES: No significant lymphadenopathy. VASCULAR: Unremarkable PELVIC VISCERA: The uterus and adnexa are unremarkable. OSSEOUS STRUCTURES: No concerning lytic or blastic osseous lesion. No acute osseous abnormality. CT/CT abdomen pelvis wo con IMPRESSION: 1. Previously seen distal right ureteral stone is now located at the right ureterovesicular junction again noted to measure approximately 0.4 cm. Mild right-sided hydroureteronephrosis is unchanged. 2. Additional chronic findings are unchanged.
[2021-01-30 14:01] VITALS: BP 151/75; PULSE 85; RESP 20; TEMP 36.8; O2SAT 98; BMI 21.0
[2021-01-30] MEDS: Ondansetron ODT 4 MG TAB.RAPDIS TRANSLINGU (14:06)
[2021-01-30 14:27] LABS: Appearance Urine CLEAR; Color Urine YELLOW; Glucose Urine UA NEG (NEG); Leukocyte Esterase Urine NEG (NEG); Nitrite Urine NEG (NEG); Specific Gravity - Urine >= 1.030 (1.005-1.025); UACC Culture Trigger NO; Urine Blood 2+ (NEG); Urine Ketones NEG (NEG); Urine Protein NEG (NEG-TRACE)
[2021-01-30 14:45] LABS: WBC Urine 0-2 /HPF (0-4)
[2021-01-30 14:46] LABS: MANUAL DIFF FLAG NO
[2021-01-30 14:47] LABS: Basophils Absolute Auto 0.1 X10*3/uL (0.0-0.2); Basophils Percent Auto 0.4 % (0-2); Eosinophils Absolute Auto 0.1 X10*3/uL (0.0-0.4); Hematocrit 42.2 % (37-47); Imm Gran Abs Auto 0.06 X10*3/uL (0.00-0.03); Imm Gran Pct Auto 0.5 % (0.0-0.4); Lymphocytes Absolute Auto 1.7 X10*3/uL (1.2-4.9); Lymphocytes Percent Auto 14.6 % (20-40); Mean Corpuscular HGB Conc 33.2 g/dl (31.0-35.0); Mean Corpuscular Hemoglobin 30.6 pg (27.0-33.0); Mean Corpuscular Volume 92.1 fL (80-98); Mean Platelet Volume 10.1 fL (9.4-12.3); Monocytes Absolute Auto 0.6 X10*3/uL (0.1-1.2); Monocytes Percent Auto 4.8 % (2-11); Neutrophils Absolute Auto 9.3 X10*3/uL (2.0-8.3); Neutrophils Percent Auto 78.7 % (45-73); Platelet Count 295 X10*3/uL (160-400); Red Blood Count 4.58 X10*6/uL (4.20-5.50); Red Cell Distribution Width 13.8 % (11.0-16.0); White Blood Count 11.8 X10*3/uL (4.8-10.8)
[2021-01-30 15:04] LABS: Alanine Aminotransferase 20 U/L (0-31); Albumin Level 4.3 g/dL (3.5-5.0); Alkaline Phosphatase 86 U/L (39-117); Anion Gap 15 (12-20); Aspartate Amino Transferase 24 U/L (5-31); Bilirubin Total 0.5 mg/dL (0.0-1.0); Blood Urea Nitrogen 24 mg/dL (9-16); Calcium 10.6 mg/dL (8.4-10.2); Carbon Dioxide 26 mmol/L (22-29); Chloride 107 mmol/L (96-108); Creatinine Clr Calc Pharmacy 45.5; Estimated Glomerular Filt Rate > 60; Glucose Random 134 mg/dL (60-115); Potassium 4.5 mmol/L (3.3-5.1); Sodium 143 mmol/L (135-145); Total Protein 7.8 g/dL (6.5-8.0)
[2021-01-30 16:17] LABS: Lipase 47 U/L (8-78); Magnesium 1.7 mg/dL (1.6-2.6)
[2021-01-30] MEDS: Ketorolac Tromethamine 15 MG/ML VIAL IVPUSH (16:18)
[2021-01-30] MEDS: 0.9 % Sodium Chloride 1,000 ML 999 ML IVCONT (16:18)
--- NOTE | 2021-01-30 17:55 | ED.ABDPAIN ---
HPI - Abdominal Pain General Chief Complaint: Abdominal Pain Stated Complaint: Flank Pain Time Seen by Provider: 01/30/21 15:56 Source: patient Mode of arrival: ambulatory History of Present Illness HPI narrative: 70-year-old female with past medical history of arthritis, HTN, HLD, renal stones, vitamin-D deficiency, presenting to the ED complaining of right flank pain radiating to abdomen since 1:00 p.m.. Admits to associated nausea and vomiting. Reports similar symptoms in the past with renal stone. Denies fever, chills, dysuria, hematuria, inability to urinate MD elicited complaint: flank pain Related Data Home Medications Medication Instructions Recorded Confirmed amlodipine 5 mg tablet 1 tab PO DAILY 06/19/20 06/19/20 atorvastatin 40 mg tablet 1 tab PO DAILY 06/19/20 06/19/20 biotin 5,000 mcg sublingual tablet 5,000 mcg SUBLINGUAL DAILY 06/19/20 06/19/20 calcium 600 mg capsule 600 mg PO BID 06/19/20 06/19/20 cetirizine 10 mg tablet 1 tab PO DAILY 06/19/20 06/19/20 cholecalciferol (vitamin D3) 25 25 mcg PO DAILY 06/19/20 06/19/20 mcg (1,000 unit) tablet (Vitamin D3) zolpidem 10 mg tablet 0.5 tab PO BEDTIME PRN 06/19/20 06/19/20 Previous Rx's Medication Instructions Recorded tamsulosin 0.4 mg capsule (Flomax) 0.4 mg PO DAILY #10 cap 11/11/20 hydrocodone 5 mg-acetaminophen 325 1 tab PO Q8H PRN 3 Days #9 tab 01/30/21 mg tablet ketorolac 10 mg tablet 10 mg PO TID PRN 5 Days #15 tab 01/30/21 ondansetron HCl 4 mg tablet 4 mg PO Q8H PRN #10 tab 01/30/21 (Zofran) tamsulosin 0.4 mg capsule (Flomax) 0.4 mg PO DAILY #14 cap 01/30/21 Allergies Allergy/AdvReac Type Severity Reaction Status Date / Time WARM WATER SHELLFISH Allergy Intermediate RASH Uncoded 11/11/20 16:52 Review of Systems Review of Systems Constitutional:No Fever, No Chills, No Fatigue, No Malaise ENT/Mouth: No Ear Pain, No Nasal Congestion, No sore throat Eyes: No Eye Pain, No Swelling, No Redness,No Discharge, No Vision Changes Cardiovascular: No Chest Pain, No SOB, No Palpitations Respiratory: No Cough, No Wheezing Gastrointestinal: + Nausea, + Vomiting, No Diarrhea, No Constipation, + Abdominal pain Genitourinary: No Dysuria, No Urinary Frequency, No Hematuria,+ Flank Pain Musculoskeletal: No joint pain, No Myalgias, No Joint Swelling Skin: No Skin Lesions, No rash Neuro: No Weakness, No Numbness, No Paresthesias Yes all other systems are reviewed and are negative Physical Exam Vital Signs: Vital Signs: Last Vital Signs Temp 98.2 F 01/30/21 14:01 Pulse 85 01/30/21 14:01 Resp 20 01/30/21 14:01 BP 151/75 H 01/30/21 14:01 Pulse Ox 98 01/30/21 14:01 Body Mass Index 21.0 Const: General: cooperative, healthy appearing and no acute distress Orientation/consciousness: patient oriented x3 Limitations: no limitations HENMT: Head: Yes normal to inspection Ears: hearing grossly normal bilaterally General nose exam: Normal external nose present Face and sinus: Yes normal facial exam Eyes: General: appearance normal, both eyes and all related structures EOM: EOMs intact bilaterally Neck: Neck: Yes normal visual inspection and Yes no meningeal signs Resp: Effort & Inspection: normal respiratory effort and no respiratory distress Cardio: Rate: regular rate GI: Inspection: Yes normal to inspection Palpation (GI): Soft to palpation, nontender, no guarding and not rigid : General: Yes CVA tenderness on the right Back/Spine/Pelvis: Back: CVA tenderness Skin: Rashes: no rashes Wounds: no wounds Neuro: General: patient oriented x3 and no meningeal signs Gait exam (Neuro): Normal gait present Extrem: General: Yes normal to inspection Course Course Course Narrative: -1800--mild leukocytosis of 11.8, labs otherwise unremarkable. On re-evaluation patient denies pain at this time -UA with RBCs, not infected CT abdomen pelvis wo con IMPRESSION: ? 1. Previously seen distal right ureteral stone is now located at the right ureterovesicular junction again noted to measure approximately 0.4 cm. Mild right-sided hydroureteronephrosis is unchanged. ? 2. Additional chronic findings are unchanged.? >> results discussed with patient. Given dose of Flomax in the ED. It has follow-up with Urology. Worrisome signs and symptoms and strict return precautions discussed MDM - Abdominal Pain MDM Narrative Medical decision making narrative: 70-year-old female with past medical history of arthritis, HTN, HLD, renal stones, vitamin-D deficiency, presenting to the ED complaining of right flank pain radiating to abdomen since 1:00 p.m. on exam VSS, NAD, abdomen soft/nontender, right CVAT noted on exam. Concern for renal stone vs pyelo. Lower concern for appendicitis/diverticulitis, cholecystitis/lithiasis or pancreatitis Plan: Labs, UA, CT AP, IVF, symptomatic treatment, reassess Medical Records Attestation: I reviewed the patient's medical records. Lab Data Attestation: I reviewed the patient's lab results. Result diagrams: 01/30/21 14:41 01/30/21 14:41 Labs: Lab Results 01/30/21 01/30/21 01/30/21 Range/Units 14:14 14:41 14:41 WBC 11.8 H (4.8-10.8) X10*3/uL RBC 4.58 (4.20-5.50) X10*6/uL Hgb 14.0 (12.0-16.0) g/dl Hct 42.2 (37-47) % MCV 92.1 (80-98) fL MCH 30.6 (27.0-33.0) pg MCHC 33.2 (31.0-35.0) g/dl RDW 13.8 (11.0-16.0) % Plt Count 295 (160-400) X10*3/uL MPV 10.1 (9.4-12.3) fL Immature Gran % (Auto) 0.5 H (0.0-0.4) % Neut % (Auto) 78.7 H (45-73) % Lymph % (Auto) 14.6 L (20-40) % [place] % (Auto) 4.8 (2-11) % Eos % (Auto) 1.0 (0-4) % Baso % (Auto) 0.4 (0-2) % Lymph # (Auto) 1.7 (1.2-4.9) X10*3/uL [place] # (Auto) 0.6 (0.1-1.2) X10*3/uL Eos # (Auto) 0.1 (0.0-0.4) X10*3/uL Baso # (Auto) 0.1 (0.0-0.2) X10*3/uL Abs Immat Gran (auto) 0.06 H (0.00-0.03) X10*3/uL Absolute Neuts (auto) 9.3 H (2.0-8.3) X10*3/uL Absolute Nucleated RBC 0.000 (0.0-0.012) X10*3/uL Nucleated RBC % (auto) 0.0 (0.0-0.2) /100WBC Sodium 143 (135-145) mmol/L Potassium 4.5 (3.3-5.1) mmol/L Chloride 107 (96-108) mmol/L Carbon Dioxide 26 (22-29) mmol/L Anion Gap 15 (12-20) BUN 24 H (9-16) mg/dL Creatinine 0.91 (0.5-1.4) mg/dL Estim Creat Clear Calc 45.5 Estimated GFR > 60 Random Glucose 134 H (60-115) mg/dL Calcium 10.6 H (8.4-10.2) mg/dL Magnesium 1.7 (1.6-2.6) mg/dL Total Bilirubin 0.5 (0.0-1.0) mg/dL AST 24 (5-31) U/L ALT 20 (0-31) U/L Alkaline Phosphatase 86 (39-117) U/L Total Protein 7.8 (6.5-8.0) g/dL Albumin 4.3 (3.5-5.0) g/dL Lipase 47 (8-78) U/L Urine Color YELLOW Urine Appearance CLEAR Urine pH 6.0 (5.0-8.0) Ur Specific [place] >= 1.030 H (1.005-1.025) Urine Protein NEG (NEG-TRACE) MG/DL Urine Glucose (UA) NEG (NEG) MG/DL Urine Ketones NEG (NEG) MG/DL Urine Blood 2+ H (NEG) Urine Nitrite NEG (NEG) Ur Leukocyte Esterase NEG (NEG) Urine RBC 5-9 H (0) /HPF Urine WBC 0-2 (0-4) /HPF Ur Squamous Epith Cells NONE /LPF Urine Bacteria NONE /LPF Discharge Plan Discharge Clinical Impression: Calculus of ureterovesical junction (UVJ) Patient Disposition: Home, Self-Care Instructions: Ureteral Stones (ED) Additional Instructions: You have a stone at the ureterovesicular junction of your right ureter, this may or may not pass on its own, really push fluids at home Flomax to help dilate her ureter Zofran as antinausea medication Toradol is an anti-inflammatory/pain medication [place] is an opiate pain medication, take only when pain is severe for the next 3 days Prescriptions: New ondansetron HCl [Zofran] 4 mg tablet 4 mg PO Q8H PRN (Reason: nausea and vomiting) Qty: 10 RF: 0 hydrocodone-acetaminophen 5-325 mg tablet 1 tab PO Q8H PRN (Reason: pain, severe) 3 Days Qty: 9 RF: 0 ketorolac 10 mg tablet 10 mg PO TID PRN (Reason: pain) 5 Days Qty: 15 RF: 0 tamsulosin [Flomax] 0.4 mg capsule 0.4 mg PO DAILY Qty: 14 RF: 0 No Action calcium 600 mg Capsule 600 mg PO BID RF: 0 atorvastatin 40 mg tablet 1 tab PO DAILY RF: 0 amlodipine 5 mg tablet 1 tab PO DAILY RF: 0 zolpidem 10 mg tablet 0.5 tab PO BEDTIME PRN (Reason: insomnia) RF: 0 cholecalciferol (vitamin D3) [Vitamin D3] 25 mcg (1,000 unit) Tablet 25 mcg PO DAILY RF: 0 biotin 5,000 mcg Tablet, Sublingual 5,000 mcg SUBLINGUAL DAILY RF: 0 cetirizine 10 mg tablet 1 tab PO DAILY RF: 0 tamsulosin [Flomax] 0.4 mg capsule 0.4 mg PO DAILY Qty: 10 RF: 0 Referrals: Francis Franco MD [Physician] - 5 days [facility] Past Medical History Attestation statement: The following information was validated with the patient. Medical History (Updated 01/30/21 @ 18:19 by RASHARD Muñoz) Arthritis Bilateral breast cancer HTN (hypertension) Hyperchloremia Kidney stones Osteopenia Vitamin D deficiency Surgical History History of bilateral mastectomy Family History Family History Paternal Uncle Colon cancer Mother Cardiac disease Father Cardiac disease Social History Social History Alcohol intake: current Alcohol intake frequency: a few times a week Alcohol type: wine Patient Tobacco Use Status: Never used Tobacco Use of substances other than those prescribed or required for medical reasons: No Advance Directives: No
[2021-01-30] MEDS: Tamsulosin HCL 0.4 MG CAPSULE PO (18:36)
== END 2021-01-30 19:06 | disposition home or self-care (01) ==
PROVIDERS: Physician Assistant; Emergency Provider Emergency Medicine; PCP Internal Medicine
DX: N20.1 Calculus of ureter (principal); R10.9 Unspecified abdominal pain; E55.9 Vitamin D deficiency, unspecified; Z79.899 Other long term (current) drug therapy
CPT/HCPCS: 36415; 74176; 80053; 81001; 83690; 83735; 85025; 96361; 96374; 99284; 99285; J1885

== ENCOUNTER → 2021-02-24 11:13 | Outpatient (BNVA) | payer MEDICARE, SELFPAY | PROVIDERS: PCP Internal Medicine | DX: N20.0 Calculus of kidney (principal) | CPT/HCPCS: 99202 ==

== ENCOUNTER 2021-06-29 11:14 | Outpatient (REF) | payer MEDICARE, SELFPAY ==
--- NOTE | ~2021-06-29 | US_ITS ---
EXAMINATION: US RETROPERITONEAL LIMITED (RENAL ONLY) CLINICAL INFORMATION: Calculus of kidney. Follow-up. COMPARISON: CT abdomen and pelvis without contrast 10/30/2020. TECHNIQUE: Transabdominal imaging of kidneys was performed. FINDINGS: RIGHT KIDNEY: 11.0 x 3.7 x 4.6 cm (SAG x AP x TRV). The kidney is normal in size, contour, and echogenicity. Renal cortical thickness is normal. There are dilated calyces. The upper pole calyx measures 2.1 x 1.5 x 1.8 cm with an echogenic stone in midpole calyx measuring 0.18 x 0.23 x 0.22 cm, question vascular calcification. There are several multiple echogenic foci. LEFT KIDNEY: 11.9 x 4.89 x 4.28 cm (SAG x AP x TRV). The kidney is normal in size, contour, and echogenicity. Renal cortical thickness is normal. No calculi or focal parenchymal lesions. No hydronephrosis. There are multiple echogenic foci visualized. US/US renal BI IMPRESSION: Bilateral multiple echogenic foci non-shadowing and non-twinkle. There is a mildly dilated upper pole calyceal system and a nonobstructive echogenic stone versus vascular calcification in the midpole measuring 0.2 cm. Multiple echogenic foci in left kidney as well but no hydronephrosis.
== END 2021-06-29 11:15 | disposition home or self-care (01) ==
LOC: HO.HMGCX 11:14
DX: N20.0 Calculus of kidney (principal)
CPT/HCPCS: 76775

== ENCOUNTER → 2021-08-07 09:55 | Outpatient (BNVA) | payer MEDICARE, SELFPAY | PROVIDERS: PCP Internal Medicine | DX: Z13.89 Encounter for screening for other disorder (principal) | CPT/HCPCS: Q3014 ==

== ENCOUNTER 2021-12-29 08:14 | Outpatient (REF) | payer MEDICARE, SELFPAY ==
--- NOTE | ~2021-12-29 | MM_ITS ---
EXAMINATION: BONE DENSITOMETRY CLINICAL INDICATION: Osteopenia. COMPARISON: Previous BD dated 10/31/2018 and baseline BD dated 08/18/2006. TECHNIQUE: Using a [employer] DXA System (software version: 13.1) manufactured by [employer], dual-energy x-ray absorptiometry was performed of the lumbar spine and left hip. The images are of good technical quality. Summary results are attached. FINDINGS: AP SPINE L1-L4: Current: BMD 1.081 g/cm2, Z-score 1.3, T-score -0.8, normal, 2.0% decrease from previous, 6.8% increase from baseline (<5% change is not significant). Prior: BMD 1.103 g/cm2. Baseline: BMD 1.012 g/cm2. LEFT FEMUR, NECK: Current: BMD 0.783 g/cm2, Z-score 0.2, T-score -1.8, osteopenia. Prior: BMD 0.773 g/cm2. Baseline: BMD 0.821 g/cm2. LEFT FEMUR, TOTAL: Current: BMD 0.774 g/cm2, Z-score 0.0, T-score -1.9, osteopenia, 0.6% decrease from previous, 7.9% decrease from baseline (<5% change is not significant). Prior: BMD 0.779 g/cm2. Baseline: BMD 0.840 g/cm2. IDENTIFIED RISK FACTORS: Menopause, osteoporosis, renal. HISTORY OF FRACTURE: None listed. MEDICATIONS: Calcium, vitamin D, bisphosphonates, Prolia. MM/XR DEXA axial skeleton IMPRESSION: 1. DIAGNOSIS: Osteopenia based on the lowest T-score value of -1.9 in the total femur applying World Health Organization criteria. 2. 10-YEAR FRACTURE RISK PREDICTION, FRAX: Major osteoporotic fracture (clinical spine, forearm, hip or shoulder) 10.4%. Hip fracture 2.1%. 3. Treatment Recommendations: NOF guidelines recommend consideration for treatment in postmenopausal women and men age 50 and older presenting with the following: -A hip or vertebral (clinical or morphometric) fracture. -T-score less than or equal to -2.5 at the femoral neck or spine after appropriate evaluation to exclude secondary causes. -Low bone mass at the hip or spine and a 10-year fracture probability by FRAX of greater than or equal to 3% for hip fracture or greater than or equal to 20% for major osteoporotic fracture based on the [place] adapted WHO algorithm. 4. Other Recommendations: All treatment decisions require clinical judgment and consideration of individual patient factors, including patient preferences, comorbidities, previous drug use, risk factors not captured in the FRAX model (e.g. frailty, falls, vitamin D deficiency, increased bone turnover, interval significant decline in bone density) and possible under or overestimation of fracture risk by FRAX. Additional medical evaluation for secondary cause of low bone mineral density may be appropriate. FUTURE SCAN RECOMMENDATION: People with diagnosed cases of osteoporosis or at high risk for fracture should have regular bone mineral density tests. For patients eligible for Medicare, routine testing is allowed once every 2 years. The testing frequency can be increased to one year for patients who have rapidly progressing disease, those who are receiving or discontinuing medical therapy to restore bone mass, or have additional risk factors.
== END 2021-12-29 08:15 | disposition home or self-care (01) ==
LOC: HO.MAMMO 08:14
PROVIDERS: PCP Internal Medicine; Visit Provider Internal Medicine Medical Oncology
DX: Z13.820 Encounter for screening for osteoporosis (principal); M85.88 Other specified disorders of bone density and structure, other site; Z78.0 Asymptomatic menopausal state
CPT/HCPCS: 77080

== ENCOUNTER 2022-01-18 12:44 | Outpatient (REF) | payer MEDICARE, SELFPAY ==
--- NOTE | ~2022-01-18 | US_ITS ---
EXAMINATION: US RETROPERITONEAL LIMITED (RENAL ONLY) CLINICAL INFORMATION: Calculus of kidney. COMPARISON: Ultrasound retroperitoneal limited (renal only) 06/29/2021. CT abdomen and pelvis without contrast 01/30/2021. TECHNIQUE: Real-time imaging of the kidneys. FINDINGS: RIGHT KIDNEY: 10.7 x 3.5 x 4.4 cm (SAG x AP x TRV). The kidney is normal in size, contour, and echogenicity. Renal cortical thickness is normal. No calculi or focal parenchymal lesions. No hydronephrosis. LEFT KIDNEY: 10.7 x 4.5 x 4.3 cm (SAG x AP x TRV). The kidney is normal in size, contour, and echogenicity. Renal cortical thickness is normal. No hydronephrosis. There are multiple punctate foci, likely tiny stones largest in the midpole measuring 0.2 x 0.2 x 0 0.2 cm. There are multiple peripelvic cyst or dilated calyces. The largest upper pole cyst versus dilated calyx measures 1.4 cm. US/US renal BI IMPRESSION: Multiple peripelvic renal cyst versus dilated calyces in left kidney. They measure 1.4 cm in maximum dimension. Multiple punctate small echogenic foci or tiny stones left kidney. There is no hydronephrosis. Unremarkable right kidney.
== END 2022-01-18 12:45 | disposition home or self-care (01) ==
LOC: HO.HMGCX 12:44
PROVIDERS: PCP Internal Medicine
DX: N20.0 Calculus of kidney (principal)
CPT/HCPCS: 76775

== ENCOUNTER → 2022-03-10 10:18 | Outpatient (BNVA) | payer MEDICARE, SELFPAY | PROVIDERS: PCP Internal Medicine; Visit Provider Urology | DX: N20.0 Calculus of kidney (principal) | CPT/HCPCS: 99212 ==

== ENCOUNTER → 2022-07-22 11:17 | Outpatient (BNVA) | payer MEDICARE, SELFPAY | PROVIDERS: PCP Internal Medicine; Visit Provider Urology | DX: N20.0 Calculus of kidney (principal) | CPT/HCPCS: Q3014 ==

== ENCOUNTER 2023-06-02 13:14 | Outpatient (AMB) | payer MEDICARE, SELFPAY ==
--- NOTE | 2023-06-02 13:52 | A.OFFVIS_ITS ---
Intake Intake Visit Reasons: low back pain Allergies WARM WATER SHELLFISH Allergy (Intermediate, Uncoded 07/22/22 11:18) RASH [facility] Medical History Arthritis Bilateral breast cancer HTN (hypertension) Hyperchloremia Kidney stones Osteopenia Vitamin D deficiency Surgical History History of bilateral mastectomy Family History Paternal Uncle Colon cancer Mother Cardiac disease Father Cardiac disease Social History Household Members: Spouse Housing: House Are you a primary emergency care tech to a significant other at home: No Do you presently have visiting nurse or other home services: No Alcohol intake: current Alcohol intake frequency: a few times a week Alcohol type: wine Patient Tobacco Use Status: Never used Tobacco service: No Current occupational status: retired Assessment & Plan Assessment & Plan (1) Back pain: Code(s): M54.9 - Dorsalgia, unspecified Plan Dear Dr. Giang Thank you for referring Mrs Lima to our office today. She has a 72-year-old female who presents for evaluation of back pain that she has had now for 2-3 months. She would generally start her morning feeling okay. As she gets out of bed and as the day goes on, she will experience a right-sided low back pain which can radiate at times down into her right buttock. Most of the time it will occur in the evening but occasionally it will occur earlier throughout the day. She did not take any medicine for it. One time she had something consistent with sciatica or radiculopathy but that is generally not a feature of what she is dealing with. The pain can be present at night, with standing or sitting. It does get worse with activity and walking but does not necessarily go away when she sits down. She had an MRI done showing degenerative issues in her back and she was sent to see us for an evaluation. PMH: She has a history of breast cancer and a double mastectomy, she has not had any issues with recurrence of cancer. History of cataract surgery, hypertension, high cholesterol Social hx: She has not smoke, drink alcohol Medications: Amlodipine, vitamin B, Ambien, atorvastatin, cetirizine, calcium, omeprazole Allergies: None Physical exam: Strength, reflexes and gait are all normal. Imaging review: She has a lumbar MRI done at [facility] in May of 2023. I also used CT scans going back to 2020 in the [employer] [facility] system for comparison. What I see is a patient who has increasing arthritis in the facet joints of L5- S1 with significant bony overgrowth. There has a slight spondylolisthesis at this level, grade 1. There is some mild degenerative disc disease and facet arthropathy at L4-5 but nothing compared to L5-S1. Impression: This is a very nice 72-year-old female who presents with 2-3 months of right-sided low back pain which will radiate down into her right buttock at times. It is present in all postural positions but is worse when she is sitting for any length of time or standing for any length of time. She does not have any radicular symptoms down into the leg or foot. No tingling or numbness. To this point she has not even tried [id number] medications yet. I discussed her MRI with her, the pertinent findings which I believe to be the L5-S1 facet arthropathy which is severe. It was present on the CT scan in 2020 but not quite as bad. I am not quite sure why it is acting up now. We talked about the fact that back pain can be elusive but that it typically will go away over time. I offered her the option physical therapy, she declined as she has not had good experience with this in the past. We talked about medications such as meloxicam, Celebrex or p.r.n. Aleve/Motrin. I told her I would defer to your office as to whether this was something she could take. I will refer her to Dr. Riley for facet blocks and possible RFA if she experiences a good result. I told her to come back and see me if these things do not give her any relief. Thank you for allowing us to care for your patient. The total time spent with this visit with this patient was 45 minutes reviewing history, physical exam, lumbar imaging review, and implementation of treatment plan or further diagnostic testing Mateo Pulido MD,PhD [facility] Orders: Referrals Physiatry Referral M54.9 - Dorsalgia, unspecified Coding Level of Care Code New Pt Level 4 (03050) Diagnoses Back pain M54.9
== END 2023-06-02 14:22 | disposition home or self-care (01) ==
PROVIDERS: PCP Internal Medicine; Visit Provider Physician Assistant
DX: M54.9 Dorsalgia, unspecified (principal)
CPT/HCPCS: 99204

== ENCOUNTER → 2023-06-02 13:14 | Outpatient (BNVA) | payer MEDICARE, SELFPAY | PROVIDERS: PCP Internal Medicine; Visit Provider Physician Assistant | DX: M54.9 Dorsalgia, unspecified (principal) | CPT/HCPCS: 99202 ==

== ENCOUNTER 2023-06-15 08:38 | Outpatient (AMB) | payer MEDICARE, SELFPAY ==
[2023-06-15 08:45] VITALS: BP 104/70; PULSE 62; RESP 12; O2SAT 98; BMI 21.3
--- NOTE | 2023-06-15 08:45 | MHC.OFFVIS ---
Intake Vital Signs 06/15/23 08:45 Height 5 ft 1 in Weight 113 lb BMI 21.3 BP 104/70 Blood Pressure Location Lt brachial Position Sitting Respiration 12 Pulse 62 Pulse Source Pulse Oximeter Pulse Oximetry (%) 98 Oxygen Delivery Method Room Air Intake Visit Reasons: Dorsalgia, unspecified Allergies WARM WATER SHELLFISH Allergy (Intermediate, Uncoded 06/15/23 08:47) RASH Medication List - Last Reconciled 06/15/23 by Pati Anne LPN amlodipine 1 tab PO DAILY atorvastatin 1 tab PO DAILY biotin 5,000 mcg sublingual DAILY calcium 600 mg PO BID cetirizine 1 tab PO DAILY cholecalciferol (vitamin D3) (Vitamin D3) 25 mcg PO DAILY omeprazole 1 cap PO DAILY pyridoxine (vitamin B6) 100 mg PO DAILY 90 days zolpidem 0.5 tabs PO BEDTIME PRN HPI Dorsalgia, unspecified HPI Details 72-year-old female who presents today for an evaluation of dorsalgia. She reports 2-3 months of right-sided low back pain, which will radiate down into her right buttock at times. Her pain score is usually between 2-8/10 in intensity and varies at various times. The pain is described as an ache in the axial low back, worse on the right side, that radiates to the right buttock. The pain is worse in all postural positions. Her pain aggravates when she is sitting or standing for any length of time. She denies any radicular symptoms down to her leg or foot. She denies having any paresthesia or numbness. She is unable to sleep normally. She has not tried [id number] medications yet. She had tried physical therapy in the past with no relief. She was diagnosed with osteopenia and has been taking Vit D supplements. She had bilateral mastectomy and is currently taking Prolia. 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 She has no children. Oswestry disability index score is 21 [facility] Medical History (Updated 06/16/23 @ 09:16 by Kaiden Riley MD) Kidney stones Hyperchloremia HTN (hypertension) Vitamin D deficiency Arthritis Bilateral breast cancer Osteopenia Surgical History History of bilateral mastectomy Family History Paternal Uncle Colon cancer Mother Cardiac disease Father Cardiac disease Social History Household Members: Spouse Housing: House Are you a primary acute care clinical nurse specialist to a significant other at home: No Do you presently have visiting nurse or other home services: No Alcohol intake: current Alcohol intake frequency: a few times a week Alcohol type: wine Patient Tobacco Use Status: Never used Tobacco service: No Current occupational status: retired Review of Systems Const All systems reviewed & are unremarkable except as noted in HPI and below Physical Exam Vital Signs: Last Vital Signs Pulse 62 06/15/23 08:45 Resp 12 06/15/23 08:45 BP 104/70 06/15/23 08:45 Pulse Ox 98 06/15/23 08:45 Oxygen Delivery Method Room Air 06/15/23 08:45 BMI result Body Mass Index 21.3 General: Appears afebrile. Alert and oriented. Mood and affect appropriate. Follows and participates in conversation appropriately. Respiratory effort is unlabored. Able to transition from sit to stand unassisted. Ambulates with bilaterally normal heel strike and toe off. SI joint compression and thrust reproduces symptoms mildly in the right lower back. Pawan does not reduce the symptoms in the right lower back. Forward flexion reproduces tugging sensations. Results Reviewed Results Reviewed: Review of MRI shows severe bilateral L5-S1 hypertrophy and spondylosis. Assessment & Plan Assessment & Plan (1) Lumbar spondylosis: Code(s): M47.816 - Spondylosis without myelopathy or radiculopathy, lumbar region (2) Osteopenia: Code(s): M85.80 - Other specified disorders of bone density and structure, unspecified site (3) Sacroiliac joint pain: Code(s): M53.3 - Sacrococcygeal disorders, not elsewhere classified Plan I discussed the diagnostic L5-S1 facet as well as the diagnostic SI joint injection with the patient today. Her pain differential includes lumbar facet arthritis and sacroiliac joint dysfunction. Given the facet arthritis on her lumbar MRI scan, we will schedule her for a diagnostic bilateral L5-S1 facet injection first. If these are nondiagnostic, we will consider a diagnostic right SI joint injection, and based on the findings of the diagnostic injections, we will schedule her for therapeutic injections. Discussed the risks and benefits of the procedure with the patient in detail. All questions were answered. The patient is on board with the plan. Justification for interventional therapy: Patient with average pain > 6/10. Patient has exhausted conservative therapy including physical therapy. Scribed for Dr. Riley by Linus Paniagua, medical claims processor, on 06/15/2023. I, Dr. Riley, have personally reviewed and agree with the information entered by the scribe. Coding Level of Care Code New Pt Level 4 (33803) Diagnoses Lumbar spondylosis M47.816 Osteopenia M85.80 Sacroiliac joint pain M53.3
== END 2023-06-15 09:24 | disposition home or self-care (01) ==
PROVIDERS: PCP Internal Medicine; Referring Provider Physician Assistant; Visit Provider Internal Medicine
DX: M47.816 Spondylosis without myelopathy or radiculopathy, lumbar region (principal); M85.80 Other specified disorders of bone density and structure, unspecified site; M53.3 Sacrococcygeal disorders, not elsewhere classified
CPT/HCPCS: 99204

== ENCOUNTER → 2023-06-15 08:38 | Outpatient (BNVA) | payer MEDICARE, SELFPAY | PROVIDERS: PCP Internal Medicine; Referring Provider Physician Assistant; Visit Provider Internal Medicine | DX: M47.816 Spondylosis without myelopathy or radiculopathy, lumbar region (principal); M85.80 Other specified disorders of bone density and structure, unspecified site; M53.3 Sacrococcygeal disorders, not elsewhere classified | CPT/HCPCS: 99202 ==

== ENCOUNTER 2023-06-16 07:41 | Outpatient (REF) | payer MEDICARE, SELFPAY ==
--- NOTE | ~2023-06-16 | CT_ITS ---
EXAMINATION: CT ABDOMEN AND PELVIS WITHOUT CONTRAST CLINICAL INFORMATION: Renal calculus. COMPARISON: Renal ultrasound dated 01/18/2022; CT the abdomen and pelvis dated 01/30/2021. TECHNIQUE: Multidetector volumetric imaging was performed from the superior aspect of the liver through the pubic symphysis. Sagittal and coronal reformatted images were obtained on the technologist's workstation. This CT examination was performed using dose optimization techniques as appropriate, variously including the following: *Automated exposure control *Adjustment of mA and/or kV according to patient size (this includes techniques or standardized protocols for targeted exams where dose is matched to indication/reason for exam; i.e. extremities or head) *Use of iterative reconstruction technique DLP: 2 mGy-cm FINDINGS: LUNG BASES: There is mild bibasilar linear scar/subsegmental atelectasis. LIVER, GALLBLADDER, AND BILIARY TREE: The liver is normal in size, shape, and attenuation. No focal hepatic lesion or biliary ductal dilatation is present. The gallbladder is unremarkable with no evidence of radiopaque gallstones, gallbladder wall thickening, or obvious pericholecystic inflammatory changes. PANCREAS: Unremarkable. SPLEEN: Unremarkable. ADRENAL GLANDS: The right adrenal gland is unremarkable. The left adrenal gland contains a 2.1 cm nodule with precontrast Hounsfield value of 26.2 units (4:103). This is stable in size from prior examinations including 09/11/2020. KIDNEYS AND URETERS: The kidneys are normal in size, shape, and attenuation. No hydronephrosis, hydroureter, or calculi seen. No perinephric stranding. At the lower pole of the left kidney (3:27), a 2.9 cm benign, simple cyst is seen, with precontrast Hounsfield value of 5.8 units. This requires no imaging follow-up. BLADDER: Decompressed and otherwise unremarkable. GASTROINTESTINAL TRACT: The small and large bowel are unremarkable. The appendix is unremarkable. ABDOMINAL WALL: No significant hernia is appreciated. LYMPH NODES: Normal. VASCULAR: There is mild aortoiliac atherosclerotic calcification. No abdominal aortic aneurysm is seen. PELVIC VISCERA: The uterus and adnexa are unremarkable. OSSEOUS STRUCTURES: At L2-L3, there is marked degenerative disc disease. There is multi-level thoracolumbar spondylosis and facet arthropathy. No acute or aggressive osseous finding is noted. CT/CT abdomen pelvis wo IV con IMPRESSION: 1. No urinary calculus or obstruction is seen. 2. A continued stable 2.1 cm left adrenal nodule is seen, with Hounsfield value of 26.2 units. This is a probably benign finding, for which no further imaging follow-up is recommended. 3. There are degenerative changes of the thoracolumbar spine. Degenerative disc disease most pronounced at L2-L3, where it is marked. Fleischner guidelines were followed.
== END 2023-06-16 07:42 | disposition home or self-care (01) ==
LOC: HO.CT 07:41
PROVIDERS: PCP Internal Medicine; Visit Provider Urology
DX: N20.0 Calculus of kidney (principal)
CPT/HCPCS: 74176

== ENCOUNTER 2023-06-30 06:14 | Outpatient (REF) | payer MEDICARE, SELFPAY ==
--- NOTE | ~2023-06-30 | FL_ITS ---
EXAMINATION: XR FLUOROSCOPY WITH IMAGES CLINICAL INFORMATION: Intraoperative fluoroscopy. COMPARISON: None available. TECHNIQUE: Fluoroscopy Supervised By: Dr. Caceres. Fluoroscopy Time: 0.2 minutes. Cumulative Dose: 1.35 mGy. DAP: 0.0109 mGym2. Images: 2. FINDINGS: The submitted image shows injection needles and injected contrast in the vicinity of the bilateral L4-L5 and L5-S1 neural foramina. FL/FL guidance in treatment room IMPRESSION: Intraoperative fluoroscopy is provided during lumbar pain management procedure. Please see the patient's Operative Report for full procedural details.
== END 2023-06-30 06:15 | disposition home or self-care (01) ==
LOC: CF 06:14
PROVIDERS: Visit Provider Internal Medicine
DX: M47.816 Spondylosis without myelopathy or radiculopathy, lumbar region (principal)
CPT/HCPCS: 64493; J2795; Q9967

== ENCOUNTER 2023-06-30 14:25 | Outpatient (AMB) | payer MEDICARE, SELFPAY ==
--- NOTE | 2023-06-30 14:24 | A.OFFVIS_ITS ---
Intake Vital Signs 06/30/23 14:25 06/30/23 14:55 Height 5 ft 1 in Weight 113 lb BMI 21.3 BP 140/70 H 126/70 Blood Pressure Location Lt brachial Lt brachial Position Sitting Sitting Respiration 16 18 Pulse 78 84 Pulse Source Pulse Oximeter Pulse Oximeter Pulse Oximetry (%) 99 97 Oxygen Delivery Method Room Air Room Air Comment Pre-Op Post-Op Intake Visit Reasons: Gian Dx L4 MBB Allergies WARM WATER SHELLFISH Allergy (Intermediate, Uncoded 06/28/23 09:31) RASH HPI Gian Dx L4 MBB HPI Details Patient presents for scheduled procedure. Denies any recent cough, cold, infection, fever or other significant changes in medical history since last office visit. [facility] Medical History Kidney stones Hyperchloremia HTN (hypertension) Vitamin D deficiency Arthritis Bilateral breast cancer Osteopenia Surgical History History of bilateral mastectomy Family History Paternal Uncle Colon cancer Mother Cardiac disease Father Cardiac disease Social History Household Members: Spouse Housing: House Are you a primary health care legal assistant to a significant other at home: No Do you presently have visiting nurse or other home services: No Alcohol intake: current Alcohol intake frequency: a few times a week Alcohol type: wine Patient Tobacco Use Status: Never used Tobacco service: No Current occupational status: retired Physical Exam Vital Signs: Last Vital Signs Pulse 84 06/30/23 14:55 Resp 18 06/30/23 14:55 BP 126/70 06/30/23 14:55 Pulse Ox 97 06/30/23 14:55 Oxygen Delivery Method Room Air 06/30/23 14:55 BMI result Body Mass Index 21.3 Office Procedures Lumbar/Sacral Facet Inj Details: Lumbar Medial Branch Block, Bilateral L4 medial branches and L5 Dorsal Rami After obtaining written consent, pre-procedure blood pressure and pulse were recorded and are in the nursing record for review. The patient was placed in a prone position. The respective lumbosacral area was prepped with chloraprep and draped in sterile fashion. The skin over the target medial branch nerves was anesthetized with 0.5% lidocaine. A 22 gauge 3.5 inch needle was inserted into the target medial branch nerve under fluoroscopic guidance. No paresthesias were elicited with needle placement and aspiration was negative for blood and CSF. Next, 0.2cc of omnipaque 180 was injected to verify positioning. Next 0.5 ml 0.5% ropivicaine was injected (0.5cc total per level). The identical procedure was performed at the remaining levels. The skin was cleansed and a sterile bandage was applied. Following the procedure the patient's vital signs were stable. The patient tolerated the procedure well and no complications were encountered. Following the procedure the patient's vital signs were stable. The patient was discharged home in good condition with post-procedural instructions. Time Out: Immediately prior to the procedure, the following was verbally confi rmed that there is a signed consent form and that the correct patient, planned procedure, site and side are consistent with documentation and that necessary equipment and/or blood products are available prior to the start of the case. Complications: none EBL: <5 cc 22197 - with Fluoroscopy (Bilateral) Procedure code (CPT) selection complete Assessment & Plan Assessment & Plan (1) Lumbar spondylosis: Code(s): M47.816 - Spondylosis without myelopathy or radiculopathy, lumbar region Plan Patient is status post bilateral diagnostic L4 medial branches and L5 dorsal rami blocks. Patient tolerated procedure well and was discharged home in stable condition with discharge instructions. All questions were answered. We will follow-up via telephone or in clinic to assess response to therapy. A follow-up appointment was made during today's visit. Orders: Orders FL guidance in treatment room Today M47.816 - Spondylosis without myelopathy or radiculopathy, lumbar region Coding Level of Care Code Procedure Only Diagnoses Lumbar spondylosis M47.816 CPT Codes Facet Injection-Lumbar/Sacral - CPT: 78929 - with Fluoroscopy ([id number])
[2023-06-30 14:25] VITALS: BP 140/70; PULSE 78; RESP 16; O2SAT 99; BMI 21.3
[2023-06-30 14:55] VITALS: BP 126/70; PULSE 84; RESP 18; O2SAT 97
== END 2023-06-30 14:55 | disposition home or self-care (01) ==
LOC: HO.PMCPRC 14:25
PROVIDERS: PCP Internal Medicine; Visit Provider Internal Medicine
DX: M47.816 Spondylosis without myelopathy or radiculopathy, lumbar region (principal)
CPT/HCPCS: 64493

== ENCOUNTER 2023-07-04 08:21 | Outpatient (AMB) | payer MEDICARE, SELFPAY ==
--- NOTE | 2023-07-04 08:39 | MHC.OFFVIS ---
Intake Vital Signs 07/04/23 08:41 Height 5 ft 1 in Weight 113 lb BMI 21.3 BP 126/73 Blood Pressure Location Lt brachial Position Sitting Pulse 80 Pulse Source Pulse Oximeter Pulse Oximetry (%) 99 Oxygen Delivery Method Room Air Intake Visit Reasons: s/p yang L4 Dx MBB Intake Note: Pain today 0/10 Swatch Checker Required: No Accompanied by: Spouse Allergies WARM WATER SHELLFISH Allergy (Intermediate, Uncoded 06/28/23 09:31) RASH HPI s/p yang L4 Dx MBB HPI Details 73-year-old female who presents today to the office for a status post bilateral L4 diagnostic MBB. The patient reports 85% relief following the procedure. She states that her severe pain has not flared up since the injection. She has mild achiness, which is manageable. She wakes up in the morning without any pain. As the day progressed, she had mild pain with movements, which resolved on its own in a few minutes. She is going on a two-week vacation to [place] starting on 07/07/2023. Past procedure: 06/30/23: Lumbar Medial Branch Block, Bilateral L4 medial branches and L5 Dorsal Rami: 85% relief for 2 days. [facility] Medical History Kidney stones Hyperchloremia HTN (hypertension) Vitamin D deficiency Arthritis Bilateral breast cancer Osteopenia Surgical History History of bilateral mastectomy Family History Paternal Uncle Colon cancer Mother Cardiac disease Father Cardiac disease Social History Household Members: Spouse Housing: House Are you a primary post acute care registered nurse to a significant other at home: No Do you presently have visiting nurse or other home services: No Alcohol intake: current Alcohol intake frequency: a few times a week Alcohol type: wine Patient Tobacco Use Status: Never used Tobacco service: No Current occupational status: retired Review of Systems Const All systems reviewed & are unremarkable except as noted in HPI and below Physical Exam Vital Signs: Last Vital Signs Pulse 80 07/04/23 08:41 BP 126/73 07/04/23 08:41 Pulse Ox 99 07/04/23 08:41 Oxygen Delivery Method Room Air 07/04/23 08:41 BMI result Body Mass Index 21.3 General: Appears afebrile. Alert and oriented. Mood and affect appropriate. Follows and participates in conversation appropriately. Respiratory effort is unlabored. Able to transition from sit to stand unassisted. Ambulates with bilaterally normal heel strike and toe off. Results Reviewed Results Reviewed: No imaging is available for review. Assessment & Plan Assessment & Plan (1) Lumbar spondylosis: Code(s): M47.816 - Spondylosis without myelopathy or radiculopathy, lumbar region Plan Discussed RFA vs. temporary nerve stimulator as a possible treatment option. The patient is amenable to proceeding with RFA first. We will schedule her for a repeat bilateral L4 medial branch, L5 dorsal ramis diagnostic nerve blocks in anticipation of lumbar medial branch radiofrequency ablation. Discussed the risks and benefits of the procedure with the patient in detail. All questions were answered. The patient is on board with the plan. Justification for interventional therapy: ? Patient with average pain > 6/10 ? Patient has exhausted conservative therapy ? Patient continuing home exercise program ? First diagnostic injection provided 85% relief . Patient has a good understanding of their pain condition and has appropriate mental and social support. Scribed for Dr. Riley by Linus Paniagua, medical collections representative, on 07/04/2023. I, Dr. Riley, have personally reviewed and agree with the information entered by the scribe. Coding Level of Care Code Est Pt Level 3 (95305) Diagnoses Lumbar spondylosis M47.816
[2023-07-04 08:41] VITALS: BP 126/73; PULSE 80; O2SAT 99; BMI 21.3
== END 2023-07-04 09:19 | disposition home or self-care (01) ==
PROVIDERS: PCP Internal Medicine; Visit Provider Internal Medicine
DX: M47.816 Spondylosis without myelopathy or radiculopathy, lumbar region (principal)
CPT/HCPCS: 99213

== ENCOUNTER → 2023-07-04 08:21 | Outpatient (BNVA) | payer MEDICARE, SELFPAY | PROVIDERS: PCP Internal Medicine; Visit Provider Internal Medicine | DX: M47.816 Spondylosis without myelopathy or radiculopathy, lumbar region (principal) | CPT/HCPCS: 99212 ==

== ENCOUNTER 2023-07-28 11:14 | Outpatient (AMB) | payer MEDICARE, SELFPAY ==
--- NOTE | 2023-07-28 11:20 | A.OFFVIS_ITS ---
Intake Visit Reasons: 6w/CT Intake Note: Patient presents today for a follow-up on CT Scan Results: Meds- Vitamin B6 Allergies to Antibiotic- No Known Allergies Blood Thinner- None Special Needs Tutor Required: No Accompanied by: Significant Other Allergies WARM WATER SHELLFISH Allergy (Intermediate, Uncoded 08/29/23 09:11) RASH HPI Comments Details: 07/28/23--Narcsia is a 73-year-old female who is here for follow up kidney stones. She denies flank pain. denies irritative voiding symptoms. I have reviewed 06/16/23-CT Abd/pelvis wo IV contrast, no renal calcifications reported. Pt instructed on diet modification, Vit B6 100 mg. Will cont to monitor kidneys. Review of chart: 03/02/2022--Narcisa is a 71-year-old female who is here for follow-up. The patient is followed for kidney stones. I have reviewed the Follow-up renal ultrasound, 01/18/2022, left kidney small stones. The patient is asymptomatic. She takes vitamin B6 daily. She admits that she is not drinking a lot of water. Urinalysis today no signs of infection. Discussed plan for 24 hour urine check after the holidays. Follow-up telehealth discuss results. 07/22/2022-- Telehealth visit Drinks 16 ounce of water 4-5 times a day and ice tea with meals. The patient followed the procedure while undergoing 24-hour urine test. The pt Denies urinary leakage while giving 24-hour urine test. Discussed 24 hour urine results: Total volume 810 mL, Calcium 20 mg; Oxalate 14mg, Sodium 75 , Citrate: less than 12 mg. I Discussed that urine volume collected appears low based on the volume of fluid intake she reports. Renal US results reviewed--01/18/2022-- Left kidney: There are multiple punctate foci, likely tiny stones largest in the midpole measuring 0.2 x 0.2 x 0 0.2 cm. There are multiple peripelvic cyst or dilated calyces. The largest upper pole cyst versus dilated calyx measures 1.4 cm. [facility] Medical History (Updated 08/31/23 @ 20:21 by Shaina Cooper MD) Kidney stones Hyperchloremia HTN (hypertension) Vitamin D deficiency Arthritis Bilateral breast cancer Osteopenia Surgical History History of bilateral mastectomy Family History Paternal Uncle Colon cancer Mother Cardiac disease Father Cardiac disease Social History Household Members: Spouse Housing: House Are you a primary day care center director to a significant other at home: No Do you presently have visiting nurse or other home services: No Alcohol intake: current Alcohol intake frequency: a few times a week Alcohol type: wine Patient Tobacco Use Status: Never used Tobacco service: No Current occupational status: retired Review of Systems Const All systems reviewed & are unremarkable except as noted in HPI and below Reports no additional complaints Eyes Reports no additional complaints ENT Reports no additional complaints Card Reports no additional complaints Resp Reports no additional complaints GI Reports no additional complaints Reports as per HPI Musc Reports no additional complaints Skin/Breast Reports system reviewed and no additional complaints, except as documented Neuro Reports no additional complaints Psych Reports no additional complaints Endo Reports no additional complaints Tay/Lymph Reports no additional complaints Aller/Immun Reports no additional complaints Results Reviewed Results Reviewed: Date of Service: 06/16/23 EXAMINATION: CT ABDOMEN AND PELVIS WITHOUT CONTRAST CLINICAL INFORMATION: Renal calculus. COMPARISON: Renal ultrasound dated 01/18/2022; CT the abdomen and pelvis dated 01/30/2021. TECHNIQUE: Multidetector volumetric imaging was performed from the superior aspect of the liver through the pubic symphysis. Sagittal and coronal reformatted images were obtained on the technologist's workstation. This CT examination was performed using dose optimization techniques as appropriate, variously including the following: *Automated exposure control *Adjustment of mA and/or kV according to patient size (this includes techniques or standardized protocols for targeted exams where dose is matched to indication/reason for exam; i.e. extremities or head) *Use of iterative reconstruction technique DLP: 2 mGy-cm FINDINGS: LUNG BASES: There is mild bibasilar linear scar/subsegmental atelectasis. LIVER, GALLBLADDER, AND BILIARY TREE: The liver is normal in size, shape, and attenuation. No focal hepatic lesion or biliary ductal dilatation is present. The gallbladder is unremarkable with no evidence of radiopaque gallstones, gallbladder wall thickening, or obvious pericholecystic inflammatory changes. PANCREAS: Unremarkable. SPLEEN: Unremarkable. ADRENAL GLANDS: The right adrenal gland is unremarkable. The left adrenal gland contains a 2.1 cm nodule with precontrast Hounsfield value of 26.2 units (4:103). This is stable in size from prior examinations including 09/11/2020. KIDNEYS AND URETERS: The kidneys are normal in size, shape, and attenuation. No hydronephrosis, hydroureter, or calculi seen. No perinephric stranding. At the lower pole of the left kidney (3:27), a 2.9 cm benign, simple cyst is seen, with precontrast Hounsfield value of 5.8 units. This requires no imaging follow-up. BLADDER: Decompressed and otherwise unremarkable. GASTROINTESTINAL TRACT: The small and large bowel are unremarkable. The appendix is unremarkable. ABDOMINAL WALL: No significant hernia is appreciated. LYMPH NODES: Normal. VASCULAR: There is mild aortoiliac atherosclerotic calcification. No abdominal aortic aneurysm is seen. PELVIC VISCERA: The uterus and adnexa are unremarkable. OSSEOUS STRUCTURES: At L2-L3, there is marked degenerative disc disease. There is multi-level thoracolumbar spondylosis and facet arthropathy. No acute or aggressive osseous finding is noted. IMPRESSION: 1. No urinary calculus or obstruction is seen. 2. A continued stable 2.1 cm left adrenal nodule is seen, with Hounsfield value of 26.2 units. This is a probably benign finding, for which no further imaging follow-up is recommended. 3. There are degenerative changes of the thoracolumbar spine. Degenerative disc disease most pronounced at L2-L3, where it is marked. Date of Service: 01/18/22 EXAMINATION: US RETROPERITONEAL LIMITED (RENAL ONLY) CLINICAL INFORMATION: Calculus of kidney. COMPARISON: Ultrasound retroperitoneal limited (renal only) 06/29/2021. CT abdomen and pelvis without contrast 01/30/2021. TECHNIQUE: Real-time imaging of the kidneys. FINDINGS: RIGHT KIDNEY: 10.7 x 3.5 x 4.4 cm (SAG x AP x TRV). The kidney is normal in size, contour, and echogenicity. Renal cortical thickness is normal. No calculi or focal parenchymal lesions. No hydronephrosis. LEFT KIDNEY: 10.7 x 4.5 x 4.3 cm (SAG x AP x TRV). The kidney is normal in size, contour, and echogenicity. Renal cortical thickness is normal. No hydronephrosis. There are multiple punctate foci, likely tiny stones largest in the midpole measuring 0.2 x 0.2 x 0 0.2 cm. There are multiple peripelvic cyst or dilated calyces. The largest upper pole cyst versus dilated calyx measures 1.4 cm. IMPRESSION: Multiple peripelvic renal cyst versus dilated calyces in left kidney. They measure 1.4 cm in maximum dimension. Multiple punctate small echogenic foci or tiny stones left kidney. There is no hydronephrosis. Unremarkable right kidney. Assessment & Plan Assessment & Plan (1) Renal cyst: Code(s): N28.1 - Cyst of kidney, acquired Category: Medical (2) Kidney stones: Code(s): N20.0 - Calculus of kidney Category: Medical Plan Monitor kidneys. Diet modification to decrease kidney stone recurrence. Vit B6 100 mg daily Advised the patient to consume adequate amount of water. Advised to consume low sodium diet. Advised Low oxalate diet---green leafy vegetable, nuts, and tea in moderation as they are rich in oxalate. FU one year, CT stone protocol Orders: Orders AMB Urinalysis Automated 07/28/23 Z13.9 - Encounter for screening, unspecified Patient Instructions: The patient had an opportunity to ask questions regarding treatment plan. The patient expressed understanding and agreement with the above treatment plan. The patient is aware they should contact our office by phone for worsening of their current condition or the appearance of new symptoms. Compliance is encouraged with any medications and followup testing that is ordered. It is a privilege to be allowed the opportunity to participate in the urologic care of your patient. If you have any questions or concerns regarding treatment for the above conditions please do not hesitate to contact me. The office telephone contact is [phone]. This note is constructed in part using voice recognition software. While every effort has been made to ensure accuracy senior environmental engineer errors may have been inc luded. Yours sincerely, Shaina Cooper MD Coding Level of Care Code Est Pt Level 3 (67515) Diagnoses Renal cyst N28.1 Kidney stones N20.0
== END 2023-07-28 12:18 | disposition home or self-care (01) ==
PROVIDERS: PCP Internal Medicine; Visit Provider Urology
DX: N28.1 Cyst of kidney, acquired (principal); N20.0 Calculus of kidney
CPT/HCPCS: 99213

== ENCOUNTER → 2023-07-28 11:14 | Outpatient (BNVA) | payer MEDICARE, SELFPAY | PROVIDERS: PCP Internal Medicine; Visit Provider Urology | DX: N28.1 Cyst of kidney, acquired (principal); N20.0 Calculus of kidney | CPT/HCPCS: 99212 ==

== ENCOUNTER 2023-08-29 09:05 | Outpatient (AMB) | payer MEDICARE, SELFPAY ==
[2023-08-29 09:10] VITALS: BP 103/78; PULSE 89; RESP 14; O2SAT 98; BMI 21.3
--- NOTE | 2023-08-29 09:10 | A.OFFVIS_ITS ---
Vital Signs 08/29/23 09:10 Height 5 ft 1 in Weight 113 lb BMI 21.3 BP 103/78 Blood Pressure Location Lt brachial Position Sitting Respiration 14 Pulse 89 Pulse Source Pulse Oximeter Pulse Oximetry (%) 98 Oxygen Delivery Method Room Air Intake Visit Reasons: Partial Affirmation Discussion Allergies WARM WATER SHELLFISH Allergy (Intermediate, Uncoded 08/29/23 09:11) RASH Medication List - Last Reconciled 08/29/23 by Pati Anne LPN amlodipine 1 tab PO DAILY atorvastatin 1 tab PO DAILY biotin 5,000 mcg sublingual DAILY calcium 600 mg PO BID cetirizine 1 tab PO DAILY cholecalciferol (vitamin D3) (Vitamin D3) 25 mcg PO DAILY omeprazole 1 cap PO DAILY pyridoxine (vitamin B6) 100 mg PO DAILY 90 days zolpidem 0.5 tabs PO BEDTIME PRN HPI HPI Partial Affirmation Discussion: Details: 73-year-old female who presents today to the office for a discussion regarding denial of the 2nd round of diagnostic facet blocks after a successful for strong. The patient had 85% relief from the 1st diagnostic lumbar medial branch block procedure for an appropriate duration for the local anesthetic typical duration. The pain then returned and is is localized to her lower back, axial in across the lower back region. She rates her pain at at least 6/10 in intensity and has been present for many years. She received two separate letters from the insurance company for denial of the procedure. She reports worsening of the lower back pain while waiting for her treatments. Her Oswestry disability index has previously done in the office was 42%. Past procedure: 06/30/23: Lumbar Medial Branch Block, Bilateral L4 Medial Branch, and L5 Dorsal Rami: 85% relief for 2 days. [facility] Medical History (Updated 08/31/23 @ 20:21 by Shaina Cooper MD) Kidney stones Hyperchloremia HTN (hypertension) Vitamin D deficiency Arthritis Bilateral breast cancer Osteopenia Surgical History History of bilateral mastectomy Family History Paternal Uncle Colon cancer Mother Cardiac disease Father Cardiac disease Social History Household Members: Spouse Housing: House Are you a primary hemodialysis patient care specialist to a significant other at home: No Do you presently have visiting nurse or other home services: No Alcohol intake: current Alcohol intake frequency: a few times a week Alcohol type: wine Patient Tobacco Use Status: Never used Tobacco service: No Current occupational status: retired Review of Systems Const All systems reviewed & are unremarkable except as noted in HPI and below Physical Exam Vital Signs: Last Vital Signs Pulse 89 08/29/23 09:10 Resp 14 08/29/23 09:10 BP 103/78 08/29/23 09:10 Pulse Ox 98 08/29/23 09:10 Oxygen Delivery Method Room Air 08/29/23 09:10 BMI result Body Mass Index 21.3 General: Appears afebrile. Alert and oriented. Mood and affect appropriate. Follows and participates in conversation appropriately. Respiratory effort is unlabored. Able to transition from sit to stand unassisted. Ambulates with bilaterally normal heel strike and toe off. Lumbar facet extension reproduces pain. Lumbar facet loading is positive on both sides, left more than right. Results Reviewed Results Reviewed: No imaging is available for review. Assessment & Plan Assessment & Plan (1) Lumbar spondylosis: Code(s): M47.816 - Spondylosis without myelopathy or radiculopathy, lumbar region Category: Medical Plan Discussed RFA vs. temporary nerve stimulator vs. PRP as possible treatment options. The patient is interested in proceeding with RFA of the lumbar medial branches first. Unfortunately her 2nd diagnostic injection has been deemed medically unnecessary despite her meeting the appropriate history, physical exam findings as well as response to the 1st round of diagnostic injection. We will resubmit prior authorization request for second round of bilateral L4 medial branch, L5 dorsal ramis diagnostic MBB in anticipation of lumbar medial branch radiofrequency ablation. Her Oswestry disability index has previously done in the office was 42%. If the request for further facet injections is denied, we will consider trial of medial branch nerve stimulation or PRP in jections for intractable low back pain. Scribed for Dr. Riley by Linus Paniagua, medical coding auditor, on 08/29/2023. I, Dr. Riley, have personally reviewed and agree with the information entered by the scribe. Coding Level of Care Code Est Pt Level 3 (90102) Diagnoses Lumbar spondylosis M47.816
== END 2023-08-29 10:05 | disposition home or self-care (01) ==
PROVIDERS: PCP Internal Medicine; Visit Provider Internal Medicine
DX: M47.816 Spondylosis without myelopathy or radiculopathy, lumbar region (principal)
CPT/HCPCS: 99213

== ENCOUNTER → 2023-08-29 09:05 | Outpatient (BNVA) | payer MEDICARE, SELFPAY | PROVIDERS: PCP Internal Medicine; Visit Provider Internal Medicine | DX: M47.816 Spondylosis without myelopathy or radiculopathy, lumbar region (principal) | CPT/HCPCS: 99212 ==

== ENCOUNTER 2023-09-22 06:14 | Outpatient (REF) | payer MEDICARE, SELFPAY ==
--- NOTE | ~2023-09-22 | FL_ITS ---
EXAMINATION: XR FLUOROSCOPY WITH IMAGES CLINICAL INFORMATION: Lumbar spine spondylosis. COMPARISON: None available. TECHNIQUE: Fluoroscopy Supervised By: Dr. Riley. Fluoroscopy Time: 0.1 min. Cumulative Dose: 1.01 mGy. DAP: 0.15166 Gycm2. Images: 4. FINDINGS: Intraoperative fluoroscopy and spot films were performed during a procedure in the OR. A series of needles are seen overlying the lumbosacral spine via transforaminal approach. Injected contrast is seen likely in the epidural space. The procedure was performed at 2 contiguous levels. Exact cysts level cannot be assessed secondary to marked coning of the images Please see Dr. Riley' report for complete details. FL/FL guidance in treatment room IMPRESSION: Intraoperative fluoroscopy and spot films were obtained. Please see Dr. Riley' report for complete details.
== END 2023-09-22 06:15 | disposition home or self-care (01) ==
LOC: CF 06:14
PROVIDERS: Visit Provider Internal Medicine
DX: M47.816 Spondylosis without myelopathy or radiculopathy, lumbar region (principal)
CPT/HCPCS: 64493; 64494; J2795; Q9967

== ENCOUNTER 2023-09-22 12:59 | Outpatient (AMB) | payer MEDICARE, SELFPAY ==
--- NOTE | 2023-09-22 13:12 | A.OFFVIS_ITS ---
Vital Signs 09/22/23 14:53 09/22/23 14:53 Height 5 ft 1 in Weight 113 lb BMI 21.3 BP 122/66 116/62 Blood Pressure Location Lt brachial Lt brachial Position Sitting Sitting Respiration 14 14 Pulse 86 74 Pulse Source Pulse Oximeter Pulse Oximeter Pulse Oximetry (%) 98 97 Oxygen Delivery Method Room Air Room Air Comment Pre-Op Post-Op Intake Visit Reasons: yang Dx L4-L5 MBB Allergies WARM WATER SHELLFISH Allergy (Intermediate, Uncoded 08/29/23 09:11) RASH HPI HPI yang Dx L4-L5 MBB: Details: Patient presents for scheduled procedure. Denies any recent cough, cold, infection, fever or other significant changes in medical history since last office visit. [facility] Medical History (Updated 08/31/23 @ 20:21 by Shaina Cooper MD) Kidney stones Hyperchloremia HTN (hypertension) Vitamin D deficiency Arthritis Bilateral breast cancer Osteopenia Surgical History History of bilateral mastectomy Family History Paternal Uncle Colon cancer Mother Cardiac disease Father Cardiac disease Social History Household Members: Spouse Housing: House Are you a primary director of health care marketing to a significant other at home: No Do you presently have visiting nurse or other home services: No Alcohol intake: current Alcohol intake frequency: a few times a week Alcohol type: wine Patient Tobacco Use Status: Never used Tobacco service: No Current occupational status: retired Office Procedures Lumbar/Sacral Facet Inj Details: Lumbar Medial Branch Block, Bilateral L4 medial branches and L5 Dorsal Rami After obtaining written consent, pre-procedure blood pressure and pulse were recorded and are in the nursing record for review. The patient was placed in a prone position. The respective lumbosacral area was prepped with chloraprep and draped in sterile fashion. The skin over the target medial branch nerves was anesthetized with 0.5% lidocaine. A 22 gauge 3.5 inch needle was inserted into the target medial branch nerve under fluoroscopic guidance. No paresthesias were elicited with needle placement and aspiration was negative for blood and CSF. Next, 0.2cc of omnipaque 180 was injected to verify positioning. Next 0.5 ml 0.5% ropivicaine was injected (0.5cc total per level). The identical procedure was performed at the remaining levels. The skin was cleansed and a sterile bandage was applied. Following the procedure the patient's vital signs were stable. The patient tolerated the procedure well and no complications were encountered. Following the procedure the patient's vital signs were stable. The patient was discharged home in good condition with post-procedural instructions. Time Out: Immediately prior to the procedure, the following was verbally confirmed that there is a signed consent form and that the correct patient, planned procedure, site and side are consistent with documentation and that necessary equipment and/or blood products are available prior to the start of the case. Complications: none EBL: <5 cc 68093 - with Fluoroscopy (bilateral) 94602 - second level, with Fluoroscopy (bilateral) Procedure code (CPT) selection complete Assessment & Plan Assessment & Plan (1) Lumbar spondylosis: Code(s): M47.816 - Spondylosis without myelopathy or radiculopathy, lumbar region Category: Medical Plan Patient is status post bilateral L4 medial branch and L5 dorsal ramus diagnostic blocks. Patient tolerated procedure well and was discharged home in stable condition with discharge instructions. All questions were answered. We will follow-up via telephone or in clinic to assess response to therapy. A follow-up appointment was made during today's visit. Orders: Orders FL guidance in treatment room Today M47.816 - Spondylosis without myelopathy or radiculopathy, lumbar region Coding Level of Care Code Procedure Only Diagnoses Lumbar spondylosis M47.816 CPT Codes Facet Injection-Lumbar/Sacral - CPT: 43996 - with Fluoroscopy ([id number]) Facet Injection-Lumbar/Sacral - CPT: 66041 - second level, with Fluoroscopy ([id number])
[2023-09-22 14:53] VITALS: BP 116/62; BP 122/66; PULSE 74; PULSE 86; RESP 14; O2SAT 97; O2SAT 98; BMI 21.3
== END 2023-09-22 13:50 | disposition home or self-care (01) ==
LOC: HO.PMCPRC 12:59
PROVIDERS: PCP Internal Medicine; Visit Provider Internal Medicine
DX: M47.816 Spondylosis without myelopathy or radiculopathy, lumbar region (principal)
CPT/HCPCS: 64493; 64494

== ENCOUNTER 2023-09-26 09:33 | Outpatient (AMB) | payer MEDICARE, SELFPAY ==
--- NOTE | 2023-09-26 09:39 | MHC.OFFVIS ---
Vital Signs 09/26/23 09:41 Height 5 ft 1 in Weight 113 lb BMI 21.3 BP 128/78 Blood Pressure Location Rt brachial Position Sitting Respiration 14 Pulse 75 Pulse Source Pulse Oximeter Pulse Oximetry (%) 98 Oxygen Delivery Method Room Air Intake Visit Reasons: s/p yang Dx L4-L5 MBB Allergies WARM WATER SHELLFISH Allergy (Intermediate, Uncoded 09/26/23 09:42) RASH Medication List - Last Reconciled 09/26/23 by Pati Anne LPN amlodipine 1 tab PO DAILY atorvastatin 1 tab PO DAILY biotin 5,000 mcg sublingual DAILY calcium 600 mg PO BID cetirizine 1 tab PO DAILY cholecalciferol (vitamin D3) (Vitamin D3) 25 mcg PO DAILY omeprazole 1 cap PO DAILY pyridoxine (vitamin B6) 100 mg PO DAILY 90 days zolpidem 0.5 tabs PO BEDTIME PRN HPI HPI s/p yang Dx L4-L5 MBB: Details: 73-year-old female presenting for follow-up after 2 diagnostic lower lumbar medial branch blocks. The patient reports more than 80% relief with each of her diagnostic injections. She actually has continued ongoing relief on the right side from the last injection. She is interested in proceeding with radiofrequency ablation of her lumbar medial branch nerves for longer term relief of her symptoms. Her pain is worse on the left side at this time. We will start with the left side and proceed with the right side 2 weeks later. [facility] Medical History (Updated 08/31/23 @ 20:21 by Shaina Cooper MD) Kidney stones Hyperchloremia HTN (hypertension) Vitamin D deficiency Arthritis Bilateral breast cancer Osteopenia Surgical History History of bilateral mastectomy Family History Paternal Uncle Colon cancer Mother Cardiac disease Father Cardiac disease Social History Household Members: Spouse Housing: House Are you a primary career professional to a significant other at home: No Do you presently have visiting nurse or other home services: No Alcohol intake: current Alcohol intake frequency: a few times a week Alcohol type: wine Patient Tobacco Use Status: Never used Tobacco service: No Current occupational status: retired Review of Systems Const All systems reviewed & are unremarkable except as noted in HPI and below Physical Exam Vital Signs: Last Vital Signs Pulse 75 09/26/23 09:41 Resp 14 09/26/23 09:41 BP 128/78 09/26/23 09:41 Pulse Ox 98 09/26/23 09:41 Oxygen Delivery Method Room Air 09/26/23 09:41 BMI result Body Mass Index 21.3 On exam today: Appears afebrile. Alert and oriented. Mood and affect appropriate. Follows and participates in conversation appropriately. Respiratory effort is unlabored. Able to transition from sit to stand unassisted. Ambulates with bilaterally normal heel strike and toe off. Able to stand and walk on toes and heels. Assessment & Plan Assessment & Plan (1) Lumbar spondylosis: Code(s): M47.816 - Spondylosis without myelopathy or radiculopathy, lumbar region Category: Medical Plan 73-year-old female with lumbar spondylosis and positive response to 2 rounds of diagnostic lumbar medial branch blocks with more than 80% response for the duration of the anesthetic phase. Patient is interested in moving forward with radiofrequency ablation of the lumbar medial branches starting with the left side followed by the right side two weeks later. Coding Level of Care Code Est Pt Level 3 (77890) Diagnoses Lumbar spondylosis M47.816
[2023-09-26 09:41] VITALS: BP 128/78; PULSE 75; RESP 14; O2SAT 98; BMI 21.3
== END 2023-09-26 10:03 | disposition home or self-care (01) ==
LOC: HO.PMC 09:33
PROVIDERS: PCP Internal Medicine; Visit Provider Internal Medicine
DX: M47.816 Spondylosis without myelopathy or radiculopathy, lumbar region (principal)
CPT/HCPCS: 99213

== ENCOUNTER → 2023-09-26 09:33 | Outpatient (BNVA) | payer MEDICARE, SELFPAY | PROVIDERS: PCP Internal Medicine; Visit Provider Internal Medicine | DX: M47.816 Spondylosis without myelopathy or radiculopathy, lumbar region (principal) | CPT/HCPCS: 99212 ==

== ENCOUNTER 2023-10-27 06:21 | Outpatient (REF) | payer MEDICARE, SELFPAY ==
--- NOTE | ~2023-10-27 | FL_ITS ---
EXAMINATION: XR FLUOROSCOPY WITH IMAGES CLINICAL INFORMATION: Spondylosis without myelopathy. COMPARISON: None available. TECHNIQUE: Fluoroscopy Supervised By: Dr. Kaiden Riley. Fluoroscopy Time: 0.4 minutes. Cumulative Dose: 4.41 mGy. DAP: 0.0386 mGym2. Images: 3. FINDINGS: Intraoperative fluoroscopy and spot films were performed during a procedure in the OR. Probes are present at likely L4, L5 and S1 on the left. Please correlate with Dr. Riley' report for complete details. FL/FL guidance in treatment room IMPRESSION: Intraoperative fluoroscopy and spot films were obtained. Please see Dr. Riley' report for complete details.
== END 2023-10-27 06:22 | disposition home or self-care (01) ==
LOC: CF 06:21
PROVIDERS: Visit Provider Internal Medicine
DX: M47.816 Spondylosis without myelopathy or radiculopathy, lumbar region (principal)
CPT/HCPCS: 64635; 64636

== ENCOUNTER 2023-10-27 10:52 | Outpatient (AMB) | payer MEDICARE, SELFPAY ==
[2023-10-27 11:32] VITALS: BP 118/67; PULSE 82; O2SAT 97
--- NOTE | 2023-10-27 11:32 | MHC.OFFVIS ---
Vital Signs 10/27/23 11:32 10/27/23 12:27 BP 118/67 103/67 Blood Pressure Location Lt brachial Lt brachial Position Sitting Sitting Pulse 82 61 Pulse Source Pulse Oximeter Pulse Oximeter Pulse Oximetry (%) 97 99 Oxygen Delivery Method Room Air Room Air Comment pre-op post-op Intake Visit Reasons: Left L4-L5 MB RFA Allergies WARM WATER SHELLFISH Allergy (Intermediate, Uncoded 09/26/23 09:42) RASH HPI HPI Left L4-L5 MB RFA: Details: Patient presents for scheduled procedure. Denies any recent cough, cold, infection, fever or other significant changes in medical history since last office visit. [facility] Medical History (Updated 08/31/23 @ 20:21 by Shaina Cooper MD) Kidney stones Hyperchloremia HTN (hypertension) Vitamin D deficiency Arthritis Bilateral breast cancer Osteopenia Surgical History History of bilateral mastectomy Family History Paternal Uncle Colon cancer Mother Cardiac disease Father Cardiac disease Social History Household Members: Spouse Housing: House Are you a primary school child care attendant to a significant other at home: No Do you presently have visiting nurse or other home services: No Alcohol intake: current Alcohol intake frequency: a few times a week Alcohol type: wine Patient Tobacco Use Status: Never used Tobacco service: No Current occupational status: retired Physical Exam Vital Signs: Last Vital Signs Pulse 61 10/27/23 12:27 BP 103/67 10/27/23 12:27 Pulse Ox 99 10/27/23 12:27 Oxygen Delivery Method Room Air 10/27/23 12:27 Office Procedures Details: Radiofrequency lesioning medial branch nerves, LEFT L3, L4 medial branches and L5 dorsal ramus (L4/5 and L5/S1) (2 levels, 3 nerves) After obtaining written consent, pre-procedure blood pressure and heart rate were stable and recorded in the nursing record. The patient was placed in the prone position. The lumbar area was prepped with chloraprep and draped in sterile fashion. The skin over the target for each medial branch nerve was anesthetized with 0.5% lidocaine. An 18 gauge radiofrequency cannula was advanced to each target site under fluoroscopic guidance. No paresthesias were elicited with needle placement and aspiration was negative for heme and CSF. Impedences were verified under 600 ohms. Sensory testing (50 Hz) and then motor testing (2 Hz) confirmed needle placement at each site within the appropriate voltage thresholds. Each site was injected with 0.5 ml 2% preservative-free lidocaine. Radiofrequency lesioning was performed for 90 seconds at 80 deg Celcius. Each site was then injected with 0.5ml 2% lidocaine. The needle was removed, skin cleansed and a sterile bandage was applied. The patient tolerated the procedure well and no complications were encountered. Following the procedure the patient's vital signs were stable. The patient was discharged home in good condition with post-procedural instructions. Time Out: Immediately prior to the procedure, the following was verbally confirmed that there is a signed consent form and that the correct patient, planned procedure, site and side are consistent with documentation and that necessary equipment and/or blood products are available prior to the start of the case. Complications: none EBL: <5 cc 93424 - RFA Lumbar Medial Branches 58236 - Lumbar Medial Branches ADDNL Procedure code (CPT) selection complete Office Meds lidocaine (PF) 50 mg/5 mL (1 %) injection syringe Performing Provider: Maria Elena Mckinnon APRN, CNP Performing Location: [facility] [place] [facility] Administered by: Kaiden Riley MD on 10/27/23 14:33 Dose Route Admin Location Dispensed Lot Number Expiration Date [facility] Picture Enlarger 5 mL Infiltration 5 mL ropivacaine (PF) 5 mg/mL (0.5 %) injection solution Performing Provider: Maria Elena Mckinnon APRN, CNP Performing Location: [facility] [place] [facility] Administered by: Kaiden Riley MD on 10/27/23 14:33 Dose Route Admin Location Dispensed Lot Number Expiration Date [facility] Picture Enlarger 5 mg subcut 1 mL Assessment & Plan Assessment & Plan (1) Lumbar spondylosis: Code(s): M47.816 - Spondylosis without myelopathy or radiculopathy, lumbar region Category: Medical Plan Patient is status post left L3, L4 medial branch and L5 dorsal ramus radiofrequency ablation. Patient tolerated procedure well and was discharged home in stable condition with discharge instructions. All questions were answered. We will follow-up via telephone or in clinic to assess response to therapy. A follow-up appointment was made during today's visit. Orders: Orders FL guidance in treatment room Today Maria Elena Mckinnon APRN, ORDNANCE EQUIPMENT WORKER M47.816 - Spondylosis without myelopathy or radiculopathy, lumbar region AMB RFA Radiofrequency Ablation Pain Management Today Maria Elena Mckinnon APRN, ORDNANCE EQUIPMENT WORKER M47.816 - Spondylosis without myelopathy or radiculopathy, lumbar region Medications: New lidocaine (PF) 5 mL Infiltration ONCE 5 mL 0RF Kaiden Riley MD M47.816 - Spondylosis without myelopathy or radiculopathy, lumbar region ropivacaine (PF) 5 mg subcut ONCE 1 mL 0RF Kaiden Riley MD M47.816 - Spondylosis without myelopathy or radiculopathy, lumbar region Coding Level of Care Code Procedure Only Diagnoses Lumbar spondylosis M47.816 CPT Codes Radiofrequency Ablation - Rad-Ablation 3: 58575 - RFA Lumbar Medial Branches ([id number]) Radiofrequency Ablation - Rad-Ablation 4: 93793 - Lumbar Medial Branches ADDNL ([id number])
[2023-10-27 12:27] VITALS: BP 103/67; PULSE 61; O2SAT 99
== END 2023-10-27 12:18 | disposition home or self-care (01) ==
LOC: HO.PMCPRC 10:52
PROVIDERS: PCP Internal Medicine; Visit Provider Internal Medicine
DX: M47.816 Spondylosis without myelopathy or radiculopathy, lumbar region (principal)
CPT/HCPCS: 64635; 64636

== ENCOUNTER 2023-11-17 06:07 | Outpatient (REF) | payer MEDICARE, SELFPAY ==
--- NOTE | ~2023-11-17 | FL_ITS ---
EXAMINATION: XR FLUOROSCOPY WITH IMAGES CLINICAL INFORMATION: Spondylosis without myelopathy or radiculopathy, lumbar region. COMPARISON: 10/27/2023. TECHNIQUE: Fluoroscopy provided to: Dr. Riley Fluoroscopy time: 0.4 minutes DAP: 0.0376 mGycm2 Images: 5 FINDINGS: Dorsal and lateral Spot images lower lumbar spine demonstrate needles overlying and advanced into the L3-4, L4-5, and L5-S1 facet joints on the right. FL/FL guidance in treatment room IMPRESSION: Fluoroscopic guidance. Please refer to the full operative report for details. Electronically signed by: Adelfo Ulrich MD 01/12/2024 09:29 AM EDT
== END 2023-11-17 06:08 | disposition home or self-care (01) ==
LOC: CF 06:07
PROVIDERS: Visit Provider Internal Medicine
DX: M47.816 Spondylosis without myelopathy or radiculopathy, lumbar region (principal)
CPT/HCPCS: 64635; 64636; J2795

== ENCOUNTER 2023-11-17 08:39 | Outpatient (AMB) | payer MEDICARE, SELFPAY ==
[2023-11-17 08:40] VITALS: BP 114/69; PULSE 75; RESP 17; O2SAT 98
[2023-11-17 09:30] VITALS: BP 111/68; PULSE 78; RESP 16; O2SAT 97
--- NOTE | 2023-11-17 09:34 | MHC.OFFVIS ---
Vital Signs 11/17/23 08:40 11/17/23 09:30 BP 114/69 111/68 Blood Pressure Location Lt brachial Lt brachial Position Sitting Sitting Respiration 17 16 Pulse 75 78 Pulse Source Pulse Oximeter Pulse Oximeter Pulse Oximetry (%) 98 97 Oxygen Delivery Method Room Air Room Air Comment Pre-op Post-op Intake Visit Reasons: Right L4-L5 MB RFA Allergies WARM WATER SHELLFISH Allergy (Intermediate, Uncoded 09/26/23 09:42) RASH PFSH Medical History (Updated 08/31/23 @ 20:21 by Shaina Cooper MD) Kidney stones Hyperchloremia HTN (hypertension) Vitamin D deficiency Arthritis Bilateral breast cancer Osteopenia Surgical History History of bilateral mastectomy Family History Paternal Uncle Colon cancer Mother Cardiac disease Father Cardiac disease Social History Household Members: Spouse Housing: House Are you a primary weekend caregiver to a significant other at home: No Do you presently have visiting nurse or other home services: No Alcohol intake: current Alcohol intake frequency: a few times a week Alcohol type: wine Patient Tobacco Use Status: Never used Tobacco service: No Current occupational status: retired Physical Exam Vital Signs: Last Vital Signs Pulse 78 11/17/23 09:30 Resp 16 11/17/23 09:30 BP 111/68 11/17/23 09:30 Pulse Ox 97 11/17/23 09:30 Oxygen Delivery Method Room Air 11/17/23 09:30 Office Procedures Details: Radiofrequency lesioning medial branch nerves, Right L3, L4 medial branches and L5 dorsal ramus (L4/5 and L5/S1) (2 levels, 3 nerves) After obtaining written consent, pre-procedure blood pressure and heart rate were stable and recorded in the nursing record. Standard monitors were applied. The patient was placed in the prone position. The lumbar area was prepped with chloraprep and draped in sterile fashion. The skin over the target for each medial branch nerve was anesthetized with 0.5% lidocaine. An 18 gauge radiofrequency cannula was advanced to each target site under fluoroscopic guidance. No paresthesias were elicited with needle placement and aspiration was negative for heme and CSF. Impedences were verified under 600 ohms. Sensory testing (50 Hz) and then motor testing (2 Hz) confirmed needle placement at each site within the appropriate voltage thresholds. Each site was injected with 0.5 ml 2% preservative-free lidocaine. Radiofrequency lesioning was performed for 90 seconds at 80 deg Celcius. Each site was then injected with 0.5ml 2% lidocaine. The needle was removed, skin cleansed and a sterile bandage was applied. The patient tolerated the procedure well and no complications were encountered. Following the procedure the patient's vital signs were stable. The patient was discharged home in good condition with post-procedural instructions. Time Out: Immediately prior to the procedure, the following was verbally confirmed that there is a signed consent form and that the correct patient, planned procedure, site and side are consistent with documentation and that necessary equipment and/or blood products are available prior to the start of the case. Complications: none EBL: <5 cc 98015 - RFA Lumbar Medial Branches 97007 - Lumbar Medial Branches ADDNL Procedure code (CPT) selection complete Office Meds lidocaine (PF) 50 mg/5 mL (1 %) injection syringe Performing Provider: Maria Elena Mckinnon APRN, CNP Performing Location: [facility] [place] [facility] Administered by: Kaiden Riley MD on 11/17/23 10:55 Dose Route Admin Location Dispensed Lot Number Expiration Date [facility] Certified Legal Secretary Specialist 5 mL Infiltration 5 mL ropivacaine (PF) 5 mg/mL (0.5 %) injection solution Performing Provider: Maria Elena Mckinnon APRN, CNP Performing Location: [facility] [place] [facility] Administered by: Kaiden Riley MD on 11/17/23 10:55 Dose Route Admin Location Dispensed Lot Number Expiration Date [facility] Certified Legal Secretary Specialist 5 mg subcut 2 mL Assessment & Plan Assessment & Plan (1) Lumbar spondylosis: Code(s): M47.816 - Spondylosis without myelopathy or radiculopathy, lumbar region Category: Medical Plan Patient is status post right L3, L4 medial branches and L5 dorsal ramus radiofrequency ablation. Patient tolerated procedure well and was discharged home in stable condition with discharge instructions. All questions were answered. We will follow-up via telephone or in clinic to assess response to therapy. A follow-up appointment was made during today's visit. Orders: Orders FL guidance in treatment room Today Maria Elena Mckinnon APRN, SALT GRINDER M47.816 - Spondylosis without myelopathy or radiculopathy, lumbar region AMB RFA Radiofrequency Ablation Pain Management Today Maria Elena Mckinnon APRN, KATARZYNA M47.816 - Spondylosis without myelopathy or radiculopathy, lumbar region Medications: New lidocaine (PF) 5 mL Infiltration ONCE 5 mL 0RF Kaidenmaximiliano Riley MD M47.816 - Spondylosis without myelopathy or radiculopathy, lumbar region lorazepam (Ativan) Take 30 minutes prior to arrival to procedure 1 mg PO ONCE 1 tab 0RF anxiety Maria Elena Mckinnon APRN, SALT GRINDER ropivacaine (PF) 5 mg subcut ONCE 1 mL 0RF Kaidenmaximiliano Riley MD M47.816 - Spondylosis without myelopathy or radiculopathy, lumbar region Coding Level of Care Code Procedure Only Diagnoses Lumbar spondylosis M47.816 CPT Codes Radiofrequency Ablation - Rad-Ablation 3: 20815 - RFA Lumbar Medial Branches ([id number]) Radiofrequency Ablation - Rad-Ablation 4: 48807 - Lumbar Medial Branches ADDNL ([id number])
== END 2023-11-17 09:44 | disposition home or self-care (01) ==
LOC: HO.PMCPRC 08:39
PROVIDERS: PCP Internal Medicine; Visit Provider Internal Medicine
DX: M47.816 Spondylosis without myelopathy or radiculopathy, lumbar region (principal)
CPT/HCPCS: 64635; 64636

== ENCOUNTER 2023-12-12 09:04 | Outpatient (AMB) | payer MEDICARE, SELFPAY ==
--- NOTE | 2023-12-12 09:06 | MHC.OFFVIS ---
Vital Signs 12/12/23 09:07 Height 5 ft 1 in Weight 111 lb BMI 21.0 BP 120/74 Blood Pressure Location Lt brachial Position Sitting Respiration 16 Pulse 83 Pulse Source Pulse Oximeter Pulse Oximetry (%) 96 Oxygen Delivery Method Room Air Intake Visit Reasons: s/p yang L4-L5 RFA Allergies WARM WATER SHELLFISH Allergy (Intermediate, Uncoded 12/12/23 09:08) RASH Medication List - Last Reconciled 12/12/23 by Pati Anne LPN amlodipine 1 tab PO DAILY atorvastatin 1 tab PO DAILY biotin 5,000 mcg sublingual DAILY calcium 600 mg PO BID cetirizine 1 tab PO DAILY cholecalciferol (vitamin D3) (Vitamin D3) 25 mcg PO DAILY lorazepam (Ativan) 1 mg PO ONCE omeprazole 1 cap PO DAILY pyridoxine (vitamin B6) 100 mg PO DAILY 90 days zolpidem 0.5 tabs PO BEDTIME PRN HPI HPI s/p yang L4-L5 RFA: Details: 73-year-old female who presents today to the office for a status post bilateral L4-L5 radio-frequency ablation. She had excellent relief on the left side and more than 50% relief on the right side. She can perform her ADLs, move, and reach for something without experiencing pain. She reports that her left-sided discomfort has been relieved, but she continues to feel right-sided tenderness, which she believes will improve over time. She is taking turmeric pills with marmalade at home. Past procedures 11/17/23: Radiofrequency lesioning medial branch nerves, Right L3, L4 medial branches and L5 dorsal ramus (L4/5 and L5/S1) (2 levels, 3 nerves): more than 50% relief. 10/27/23: Radiofrequency lesioning medial branch nerves, Left L3, L4 medial branches and L5 dorsal ramus (L4/5 and L5/S1) (2 levels, 3 nerves): excellent relief. 09/22/23: Lumbar Medial Branch Block, Bilateral L4 medial branches and L5 Dorsal Rami: % relief. 06/30/23: Lumbar Medial Branch Block, Bilateral L4 Medial Branch, and L5 Dorsal Rami: 85% relief for 2 days. [facility] Medical History (Updated 08/31/23 @ 20:21 by Shaina Cooper MD) Kidney stones Hyperchloremia HTN (hypertension) Vitamin D deficiency Arthritis Bilateral breast cancer Osteopenia Surgical History History of bilateral mastectomy Family History Paternal Uncle Colon cancer Mother Cardiac disease Father Cardiac disease Social History Household Members: Spouse Housing: House Are you a primary youth care worker to a significant other at home: No Do you presently have visiting nurse or other home services: No Alcohol intake: current Alcohol intake frequency: a few times a week Alcohol type: wine Patient Tobacco Use Status: Never used Tobacco service: No Current occupational status: retired Review of Systems Const All systems reviewed & are unremarkable except as noted in HPI and below Physical Exam Vital Signs: Last Vital Signs Pulse 83 12/12/23 09:07 Resp 16 12/12/23 09:07 BP 120/74 12/12/23 09:07 Pulse Ox 96 12/12/23 09:07 Oxygen Delivery Method Room Air 12/12/23 09:07 BMI result Body Mass Index 21.0 General: Appears afebrile. Alert and oriented. Mood and affect appropriate. Follows and participates in conversation appropriately. Respiratory effort is unlabored. Able to transition from sit to stand unassisted. Ambulates with bilaterally normal heel strike and toe off. Results Reviewed Results Reviewed: No imaging is available for review. Assessment & Plan Assessment & Plan (1) Lumbar spondylosis: Code(s): M47.816 - Spondylosis without myelopathy or radiculopathy, lumbar region Category: Medical Plan She had excellent relief on the left side and more than 50% relief on the right side. She is continuing to have some soreness in her right buttock, which I counseled will likely improve at time. For now, she will continue with her home exercise program and follow up as needed once her symptoms return. Scribed for Dr. Riley by Linus Paniagua, medical imaging technician, on 12/12/2023. I, Dr. Riley, have personally reviewed and agree with the information entered by the scribe. Coding Level of Care Code Est Pt Level 3 (71067) Diagnoses Lumbar spondylosis M47.816
[2023-12-12 09:07] VITALS: BP 120/74; PULSE 83; RESP 16; O2SAT 96; BMI 21.0
== END 2023-12-12 09:42 | disposition home or self-care (01) ==
PROVIDERS: PCP Internal Medicine; Visit Provider Internal Medicine
DX: M47.816 Spondylosis without myelopathy or radiculopathy, lumbar region (principal)
CPT/HCPCS: 99213

== ENCOUNTER → 2023-12-12 09:04 | Outpatient (BNVA) | payer MEDICARE, SELFPAY | PROVIDERS: PCP Internal Medicine; Visit Provider Internal Medicine | DX: M47.816 Spondylosis without myelopathy or radiculopathy, lumbar region (principal) | CPT/HCPCS: 99212 ==

== ENCOUNTER 2024-01-03 08:33 | Outpatient (REF) | payer MEDICARE, SELFPAY ==
--- NOTE | ~2024-01-03 | MM_ITS ---
EXAMINATION: BONE DENSITOMETRY CLINICAL INDICATION: Osteopenia. COMPARISON: Previous BD dated 12/29/2021 and baseline BD dated 08/18/2006. TECHNIQUE: Using a [employer] DXA System (software version: 13.1) manufactured by [employer], dual-energy x-ray absorptiometry was performed of the lumbar spine and left hip. The images are of good technical quality. Summary results are attached. FINDINGS: LEFT FEMUR, NECK: Current: BMD 0.805 g/cm2, Z-score 0.5, T-score -1.7, osteopenia. Prior: BMD 0.783 g/cm2. Baseline: BMD 0.821 g/cm2. LEFT FEMUR, TOTAL: Current: BMD 0.785 g/cm2, Z-score 0.2, T-score -1.8, osteopenia, 1.4% increase from previous, 6.5% decrease from baseline (<5% change is not significant). Prior: BMD 0.774 g/cm2. Baseline: BMD 0.840 g/cm2. AP SPINE L1-L4: Current: BMD 1.195 g/cm2, Z-score 2.3, T-score 0.1, normal, 10.5% increase from previous, 18.1% increase from baseline (<5% change is not significant). Prior: BMD 1.081 g/cm2. Baseline: BMD 1.012 g/cm2. IDENTIFIED RISK FACTORS: Menopause, height loss, osteoporosis. HISTORY OF FRACTURE: None listed. MEDICATIONS: Calcium supplements or multivitamin, vitamin D, ERT/SERMS. MM/XR DEXA axial skeleton IMPRESSION: 1. DIAGNOSIS: Osteopenia based on the lowest T-score value of -1.8 in the total femur applying World Health Organization criteria. 2. 10-YEAR FRACTURE RISK PREDICTION, FRAX: Not performed in this patient on estrogen or bone building treatments. 3. Treatment Recommendations: NOF guidelines recommend consideration for treatment in postmenopausal women and men age 50 and older presenting with the following: -A hip or vertebral (clinical or morphometric) fracture. -T-score less than or equal to -2.5 at the femoral neck or spine after appropriate evaluation to exclude secondary causes. -Low bone mass at the hip or spine and a 10-year fracture probability by FRAX of greater than or equal to 3% for hip fracture or greater than or equal to 20% for major osteoporotic fracture based on the [place] adapted WHO algorithm. 4. Other Recommendations: All treatment decisions require clinical judgment and consideration of individual patient factors, including patient preferences, comorbidities, previous drug use, risk factors not captured in the FRAX model (e.g. frailty, falls, vitamin D deficiency, increased bone turnover, interval significant decline in bone density) and possible under or overestimation of fracture risk by FRAX. Additional medical evaluation for secondary cause of low bone mineral density may be appropriate. FUTURE SCAN RECOMMENDATION: People with diagnosed cases of osteoporosis or at high risk for fracture should have regular bone mineral density tests. For patients eligible for Medicare, routine testing is allowed once every 2 years. The testing frequency can be increased to one year for patients who have rapidly progressing disease, those who are receiving or discontinuing medical therapy to restore bone mass, or have additional risk factors. Electronically signed by: Napoleon Pop MD 01/04/2024 02:30 PM EDT
== END 2024-01-03 08:34 | disposition home or self-care (01) ==
LOC: HO.MAMMO 08:33
PROVIDERS: PCP Internal Medicine; Visit Provider Internal Medicine Medical Oncology
DX: Z13.820 Encounter for screening for osteoporosis (principal); M85.80 Other specified disorders of bone density and structure, unspecified site; Z78.0 Asymptomatic menopausal state
CPT/HCPCS: 77080

== ENCOUNTER 2024-06-18 09:43 | Outpatient (REF) | payer MEDICARE, SELFPAY ==
--- NOTE | ~2024-06-18 | CT_ITS ---
CLINICAL HISTORY: N20.0 - Calculus of kidney CT abdomen and pelvis without contrast Comparison: 06/16/2023 Findings: Bibasilar bandlike lung atelectasis/scarring. Partially evaluated left breast implant. Mitral valve calcifications. Small left lower lung calcified granuloma. No significant change (even relative to earlier CT scans dating back to 09/11/2020) in benign 21 mm left adrenal nodule/adenoma. One to a few subtle punctate nonobstructive right renal stones. A few left renal parapelvic cysts. No hydronephrosis or perinephric fat stranding. Mild colonic diverticulosis without diverticulitis. Odaj-bj-utnxilxt colonic stool. Bowel obstruction. No evidence of appendicitis. The bones are intact. Spinal degenerative changes. Degenerative grade 1 anterolisthesis at L5/S1 as before. Atherosclerotic vascular calcifications. Rest of the abdominopelvic viscera are unremarkable. IMPRESSION: One to a few subtle punctate nonobstructive right renal stones. A few left renal parapelvic cysts. No hydronephrosis or perinephric fat stranding. This document has been electronically signed by: Radha Kumar MD on 06/19/2024 09:47:59
--- OUTSIDE RECORDS SUMMARY | 2024-06-18 10:49 | XMS_ITS | Patient Health Record ---
Author Organization [facility] d[place] Address [address] [place] [address] Care Team Providers Care Edger Runner Name Role Phone Wisam Giang MD Primary Care Provider Nichole Carlton Unavailable [phone] Allergies Allergen (clinical drug ingredient) Drug/Non Drug Allergy documented on EMR Reaction Allergy Type Onset Date Status Shellfish (FN) Shellfish-derived Products hives Drug Allergy Active Reason For Referral No Information Medications Medication SIG (Take, Route, Frequency, Duration) Notes Start Date End Date Status Cetirizine HCl 10 MG 1 tablet Orally Onc e a day for 30 day(s) Active Calcium Active Biotin Active Atorvastatin Calcium 40 MG 1 tablet Oral ly Once a day for 30 day(s) Active amLODIPine Besylate 5 MG 1 tablet Orally Once a day for 30 day(s) Active Vitamin B6 Active Omeprazole Active Zolpidem Tartrate 5 MG 1 tablet at bedti me Orally Once a day Active Vitamin D Active Immunizations Vaccine Route Administration Date Status Comme nts COVID-19 Moderna Vaccine Unknown 07/30/2021 Administered 1st 06/12/20 2nd 07/10/20 3rd 12/08/20 Social History Tobacco Use: Social History Observation Description Date Details (start date - stop date) Never Smoker NA - NA Tobacco Use/Smoking Question Answer Notes Are you a: nonsmoker Additional Findings: Tobacco Non-User Current no n-smoker Alcohol Screen Question Answer Notes Did you have a drink contain ing alcohol in the past year? Yes How often did you have a dri nk containing alcohol in the past year? 2 to 3 times a week (3 points) Points 3 Interpretation Positive Tobacco use other than smoking: Question Answer Notes Are you an other tobacco user? No Problems Problem Type SNOMED Code ICD Code Onset Dates Problem Status W/U Status Risk Notes Problem [id number] Hallux valgus (acquired), right foot (M20.11) Active confirmed Plan Of Treatment Pending Test Test Name Order Date X ray : Foot, left 3V 02/03/2022 X ray : Foot, right 3V 02/03/2022 Insurance Providers Payer Name Payer Address Payer Phone Subscriber Number Group Number Insured Name Patient Relationship to Insured Coverage Start Date Coverage End Date Medicare National Govt Svcs Inc [address] [place] [address] [id number] Narcisa Lima Self - patient is the insured [employer] [address] [place] [address] [id number] Narcisa Lima Self - patient is the insured Medical (General) History Medical History History ICD Code Arthritis Cholesterol Cancer Cataracts Chron's/ Colitis High blood pressure Kidney disease Osteoporosis Measles Mumps Chicken pox covid-19 Surgical History Surgery Date(Month/Year) B/L mastectomy 2007 foot surgery 2003 Hospitalization History Reason Date(Month/Year) [facility] [place] ER-Kidney Stones 2021
== END 2024-06-18 09:44 | disposition home or self-care (01) ==
LOC: HO.CT 09:43
PROVIDERS: PCP Internal Medicine; Visit Provider Urology
DX: N20.0 Calculus of kidney (principal)
CPT/HCPCS: 74176

== ENCOUNTER → 2024-06-18 09:46 | Outpatient (BNV) | payer MEDICARE, SELFPAY | PROVIDERS: PCP Internal Medicine; Visit Provider Radiology Diagnostic Radiology | DX: N20.0 Calculus of kidney (principal) | CPT/HCPCS: 74176 ==

== ENCOUNTER 2024-07-27 09:55 | Outpatient (AMB) | payer MEDICARE, SELFPAY ==
--- OUTSIDE RECORDS SUMMARY | 2024-07-27 10:32 | XMS_ITS | Patient Health Record ---
Author Organization [facility] [place] Address [address] [place] [address] Care Team Providers Care Accounts Receivable Manager Name Role Phone Wisam Giang MD Primary Care Provider Nichole Carlton Unavailable [phone] Allergies Allergen (clinical drug ingredient) Drug/Non Drug [...] Problem Status W/U Status Risk Notes Problem [id number] Hallux valgus (acquired), right foot (M20.11) Active [...] Inc [address] [place] [address] [id number] Narcisa Lima Self - patient is the insured [employer] [address] [place] [address] [phone] [id number] Narcisa Lima Self - patient is the insured Medical (General) History Medical History History ICD Code Arthritis Cholesterol Cancer Cataracts Chron's/ Colitis High blood pressure Kidney disease Osteoporosis Measles Mumps Chicken pox covid-19 Surgical History Surgery Date(Month/Year) B/L mastectomy 2007 foot surgery 2003 Hospitalization History Reason Date(Month/Year) [facility] [place] ER-Kidney Stones 2021
--- NOTE | 2024-07-27 10:48 | A.OFFVIS_ITS ---
Intake Visit Reasons: 1y/CT Intake Note: Patient presents today for a 1 year follow-up/CT CT Scan:06/18/24 Urology Meds- Vitamin B6 Allergies to Antibiotic- No Known Allergies Blood Thinner- None Machine Stuffer Required: No Accompanied by: Significant Other Allergies WARM WATER SHELLFISH Allergy (Intermediate, Uncoded 07/26/24 09:43) RASH Medication List - Last Reconciled 07/27/24 by Shaina Cooper MD amlodipine 1 tab PO DAILY atorvastatin 1 tab PO DAILY baclofen 10 mg PO DAILY biotin 5,000 mcg sublingual DAILY calcium 600 mg PO BID cetirizine 1 tab PO DAILY cholecalciferol (vitamin D3) (Vitamin D3) 25 mcg PO DAILY lorazepam (Ativan) 1 mg PO ONCE omeprazole 1 cap PO DAILY pyridoxine (vitamin B6) 100 mg PO DAILY 90 days zolpidem 0.5 tabs PO BEDTIME PRN HPI Comments Details: 07/28/23--Narcisa is a 73-year-old female who is here for follow up kidney stones. She denies flank pain. denies irritative voiding symptoms. I have reviewed 06/16/23-CT Abd/pelvis wo IV contrast, no renal calcifications reported. Pt instructed on diet modification, updated diet she provided. Continue Vit B6 100 mg. Will cont to monitor kidneys. Follow-up in 1 year with renal ultrasound telehealth. 03/02/2022--Narcisa is a 71-year-old female who is here for follow-up. The patient is followed for kidney stones. I have reviewed the Follow-up renal ultrasound, 01/18/2022, left kidney small stones. The patient is asymptomatic. She takes vitamin B6 daily. She admits that she is not drinking a lot of water. Urinalysis today no signs of infection. Discussed plan for 24 hour urine check after the holidays. Follow-up telehealth discuss results. 07/22/2022-- Telehealth visit Drinks 16 ounce of water 4-5 times a day and ice tea with meals. The patient followed the procedure while undergoing 24-hour urine test. The pt Denies u rinary leakage while giving 24-hour urine test. Discussed 24 hour urine results: Total volume 810 mL, Calcium 20 mg; Oxalate 14mg, Sodium 75 , Citrate: less than 12 mg. I Discussed that urine volume collected appears low based on the volume of fluid intake she reports. Renal US results reviewed--01/18/2022-- Left kidney: There are multiple punctate foci, likely tiny stones largest in the midpole measuring 0.2 x 0.2 x 0 0.2 cm. There are multiple peripelvic cyst or dilated calyces. The largest upper pole cyst versus dilated calyx measures 1.4 cm. PFSH Medical History Kidney stones Hyperchloremia HTN (hypertension) Vitamin D deficiency Arthritis Bilateral breast cancer Osteopenia Surgical History History of bilateral mastectomy Family History Paternal Uncle Colon cancer Mother Cardiac disease Father Cardiac disease Social History Household Members: Spouse Housing: House Are you a primary health and social care teacher to a significant other at home: No Do you presently have visiting nurse or other home services: No Alcohol intake: current Alcohol intake frequency: a few times a week Alcohol type: wine Patient Tobacco Use Status: Never used Tobacco service: No Current occupational status: retired Results AMB Urinalysis, Automated UA Leukoctes 0 Giuseppe/uL Last Edit by Norma Trevizo on 07/27/24 14:18 UA Nitrite Negative Last Edit by Norma Trevizo on 07/27/24 14:18 UA Urobilinogen 0.2 mg/dL Last Edit by Norma Trevizo on 07/27/24 14:18 UA Protein 15 mg/dL Last Edit by Norma Trevizo on 07/27/24 14:18 UA pH 6.0 Last Edit by Norma Trevizo on 07/27/24 14:18 UA Blood 0 Nikolay/uL Last Edit by Norma Trevizo on 07/27/24 14:18 UA Specific [place] 1.015 Last Edit by Norma Trevizo on 07/27/24 14:18 UA Ketone Negative Last Edit by Norma Trevizo on 07/27/24 14:18 UA Bilirubin 0 mg/dL Last Edit by Norma Trevizo on 07/27/24 14:18 UA Glucose 0 mg/dL Last Edit by Norma Trevizo on 07/27/24 14:18 Results Reviewed Results Reviewed: Date of Service: 06/18/24 CLINICAL HISTORY: N20.0 - Calculus of kidney CT abdomen and pelvis without contrast Comparison: 06/16/2023 Findings: Bibasilar bandlike lung atelectasis/scarring. Partially evaluated left breast implant. Mitral valve calcifications. Small left lower lung calcified granuloma. No significant change (even relative to earlier CT scans dating back to 09/11/2020) in benign 21 mm left adrenal nodule/adenoma. One to a few subtle punctate nonobstructive right renal stones. A few left renal parapelvic cysts. No hydronephrosis or perinephric fat stranding. Mild colonic diverticulosis without diverticulitis. Utpe-dt-lumysavh colonic stool. Bowel obstruction. No evidence of appendicitis. The bones are intact. Spinal degenerative changes. Degenerative grade 1 anterolisthesis at L5/S1 as before. Atherosclerotic vascular calcifications. Rest of the abdominopelvic viscera are unremarkable. IMPRESSION: One to a few subtle punctate nonobstructive right renal stones. A few left renal parapelvic cysts. No hydronephrosis or perinephric fat stranding. Date of Service: 06/16/23 EXAMINATION: CT ABDOMEN AND PELVIS WITHOUT CONTRAST CLINICAL INFORMATION: Renal calculus. COMPARISON: Renal ultrasound dated 01/18/2022; CT the abdomen and pelvis dated 01/30/2021. TECHNIQUE: Multidetector volumetric imaging was performed from the superior aspect of the liver through the pubic symphysis. Sagittal and coronal reformatted images were obtained on the technologist's workstation. This CT examination was performed using dose optimization techniques as appropriate, variously including the following: *Automated exposure control *Adjustment of mA and/or kV according to patient size (this includes techniques or standardized protocols for targeted exams where dose is matched to indication/reason for exam; i.e. extremities or head) *Use of iterative reconstruction technique DLP: 2 mGy-cm FINDINGS: LUNG BASES: There is mild bibasilar linear scar/subsegmental atelectasis. LIVER, GALLBLADDER, AND BILIARY TREE: The liver is normal in size, shape, and attenuation. No focal hepatic lesion or biliary ductal dilatation is present. The gallbladder is unremarkable with no evidence of radiopaque gallstones, gallbladder wall thickening, or obvious pericholecystic inflammatory changes. PANCREAS: Unremarkable. SPLEEN: Unremarkable. ADRENAL GLANDS: The right adrenal gland is unremarkable. The left adrenal gland contains a 2.1 cm nodule with precontrast Hounsfield value of 26.2 units (4:103). This is stable in size from prior examinations including 09/11/2020. KIDNEYS AND URETERS: The kidneys are normal in size, shape, and attenuation. No hydronephrosis, hydroureter, or calculi seen. No perinephric stranding. At the lower pole of the left kidney (3:27), a 2.9 cm benign, simple cyst is seen, with precontrast Hounsfield value of 5.8 units. This requires no imaging follow-up. BLADDER: Decompressed and otherwise unremarkable. GASTROINTESTINAL TRACT: The small and large bowel are unremarkable. The appendix is unremarkable. ABDOMINAL WALL: No significant hernia is appreciated. LYMPH NODES: Normal. VASCULAR: There is mild aortoiliac atherosclerotic calcification. No abdominal aortic aneurysm is seen. PELVIC VISCERA: The uterus and adnexa are unremarkable. OSSEOUS STRUCTURES: At L2-L3, there is marked degenerative disc disease. There is multi-level thoracolumbar spondylosis and facet arthropathy. No acute or aggressive osseous finding is noted. IMPRESSION: 1. No urinary calculus or obstruction is seen. 2. A continued stable 2.1 cm left adrenal nodule is seen, with Hounsfield value of 26.2 units. This is a probably benign finding, for which no further imaging follow-up is recommended. 3. There are degenerative changes of the thoracolumbar spine. Degenerative disc disease most pronounced at L2-L3, where it is marked. Date of Service: 01/18/22 EXAMINATION: US RETROPERITONEAL LIMITED (RENAL ONLY) CLINICAL INFORMATION: Calculus of kidney. COMPARISON: Ultrasound retroperitoneal limited (renal only) 06/29/2021. CT abdomen and pelvis without contrast 01/30/2021. TECHNIQUE: Real-time imaging of the kidneys. FINDINGS: RIGHT KIDNEY: 10.7 x 3.5 x 4.4 cm (SAG x AP x TRV). The kidney is normal in size, contour, and echogenicity. Renal cortical thickness is normal. No calculi or focal parenchymal lesions. No hydronephrosis. LEFT KIDNEY: 10.7 x 4.5 x 4.3 cm (SAG x AP x TRV). The kidney is normal in size, contour, and echogenicity. Renal cortical thickness is normal. No hydronephrosis. There are multiple punctate foci, likely tiny stones largest in the midpole measuring 0.2 x 0.2 x 0 0.2 cm. There are multiple peripelvic cyst or dilated calyces. The largest upper pole cyst versus dilated calyx measures 1.4 cm. IMPRESSION: Multiple peripelvic renal cyst versus dilated calyces in left kidney. They measure 1.4 cm in maximum dimension. Multiple punctate small echogenic foci or tiny stones left kidney. There is no hydronephrosis. Unremarkable right kidney. Assessment & Plan Assessment & Plan (1) History of kidney stones: Code(s): Z87.442 - Personal history of urinary calculi Category: Medical (2) Renal cyst: Code(s): N28.1 - Cyst of kidney, acquired Category: Medical (3) Kidney stones: Code(s): N20.0 - Calculus of kidney Category: Medical Plan Monitor kidneys. Diet modification to decrease kidney stone recurrence. Vit B6 100 mg daily Advised the patient to consume adequate amount of water. Advised to consume low sodium diet. Advised Low oxalate diet---green leafy vegetable, nuts, and tea in moderation as they are rich in oxalate. FU one year, renal ultrasound Orders: Orders US renal BI 11 Months Z87.442 - Personal history of urinary calculi AMB Urinalysis Automated Today Z13.9 - Encounter for screening, unspecified Medications: Refilled pyridoxine (vitamin B6) 100 mg PO DAILY 90 tabs 3RF 90 days Patient Instructions: The patient had an opportunity to ask questions regarding treatment plan. The patient expressed understanding and agreement with the above treatment plan. The patient is aware they should contact our office by phone for worsening of their current condition or the appearance of new symptoms. Compliance is encouraged with any medications and followup testing that is ordered. It is a privilege to be allowed the opportunity to participate in the urologic care of your patient. If you have any questions or concerns regarding treatment for the above conditions please do not hesitate to contact me. The office telephone contact is [phone]. This note is constructed in part using voice recognition software. While every effort has been made to ensure accuracy building trades instructor errors may have been included. Yours sincerely, Shaina Cooper MD Coding Level of Care Code Est Pt Level 3 (08815) Complex EM visit Add On G2211 Diagnoses History of kidney stones Z87.442 Renal cyst N28.1 Kidney stones N20.0
== END 2024-07-27 11:39 | disposition home or self-care (01) ==
LOC: HO.HUSH 09:56
PROVIDERS: PCP Internal Medicine; Visit Provider Urology
DX: Z13.9 Encounter for screening, unspecified (principal)

== ENCOUNTER → 2024-07-27 09:55 | Outpatient (BNVA) | payer MEDICARE, SELFPAY | PROVIDERS: PCP Internal Medicine; Visit Provider Urology | DX: N20.0 Calculus of kidney (principal); N28.1 Cyst of kidney, acquired; Z87.442 Personal history of urinary calculi | CPT/HCPCS: 81003; 99212 ==

== ENCOUNTER 2024-12-21 10:31 | Outpatient (REF) | payer MEDICARE, SELFPAY ==
--- OUTSIDE RECORDS SUMMARY | 2024-12-21 11:32 | XMS_ITS | Patient Health Record ---
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 Name Role Phone Wisam Giang MD Primary Care Provider Nichole Carlton Unavailable [phone] Allergies Allergen (clinical drug ingredient) Drug/Non Drug Allergy documented on EMR Reaction Allergy Type Onset Date Status Shellfish (FN) Shellfish-derived Products hives Drug Allergy Active Reason For Referral No Information Medications Medication SIG (Take, Route, Frequency, Duration) Notes Start Date End Date Status Cetirizine HCl 10 MG 1 tablet Orally Onc e a day; Duration: 30 day(s) Active Calcium Active Biotin Active Atorvastatin Calcium 40 MG 1 tablet Oral ly Once a day; Duration: 30 day(s) Active amLODIPine Besylate 5 MG 1 tablet Orally Once a day; Duration: 30 day(s) Active Vitamin B6 Active Omeprazole [...] Problem Status W/U Status Risk Notes Problem Acquired hallux valgus (23743841) Hallux valgus (acquired), right foot (M20.11) Active confirmed Plan Of Treatment Pending Test Test Name Order Date X ray : Foot, left 3V 02/03/2022 X ray : Foot, right 3V 02/03/2022 Insurance Providers Payer Name Payer Address Payer Phone Subscriber Number Group Number Insured Name Patient Relationship to Insured Coverage Start Date Coverage End Date Medicare [employer] [address] [place] [address] [id number] Narcisa Lima Self - patient is the insured [employer] [address] [place] [address] [phone] [id number] Narcisa Lima Self - patient is the insured Medical (General) History Medical History History ICD Code Arthritis Cholesterol Cancer Cataracts Chron's/ Colitis High blood pressure Kidney disease Osteoporosis Measles Mumps Chicken pox covid-19 Surgical History Surgery Date(Month/Year) B/L mastectomy 2007 foot surgery 2003 Hospitalization History Reason Date(Month/Year[place] [facility] [facility] [place]
== END 2024-12-21 10:32 | disposition home or self-care (01) ==
LOC: HO.SH 10:31
PROVIDERS: Visit Provider Internal Medicine
DX: Z01.118 Encounter for examination of ears and hearing with other abnormal findings (principal); H61.21 Impacted cerumen, right ear
CPT/HCPCS: 92567